=== PATIENT | male | born 1945 | race Caucasian/White ===

== ENCOUNTER → 2018-01-08 14:06 | Outpatient (CLI) | payer MEDICARE, SELFPAY ==
[2018-01-08 16:07] LABS: Anion Gap 11 (5-15); BUN 13 mg/dL (7-18); BUN/Creat Ratio 12.9 RATIO (10-20); Chloride 103 mmol/L (98-107); Cholesterol 226 mg/dL (200); Creatinine, Serum 1.01 mg/dL (0.70-1.30); EST Glomerular Filtration Rate 78 mL/min (>60); Est Glom Filt Rate - Afr Amer 94 mL/min (>60); Glucose 97 mg/dL (74-106); High Density Lipoprotein 51 mg/dL; PSA,Total - Annual Screen 5.45 ng/mL (0.00-4.00); Potassium 3.7 mmol/L (3.5-5.1); Sodium Level 137 mmol/L (136-145); Triglycerides 79 mg/dL; Very Low Density Lipoprotein 16 mg/dL (5-40)
== END ==
PROVIDERS: Family Provider Family Medicine; PCP Family Medicine; Referring Provider Family Medicine; Visit Provider Family Medicine
DX: E78.00 Pure hypercholesterolemia, unspecified (principal); Z12.5 Encounter for screening for malignant neoplasm of prostate
CPT/HCPCS: 36415; 80048; 80061; 84153; G0103

== ENCOUNTER → 2018-08-11 | Outpatient (CLI) | payer MEDICARE, SELFPAY ==
[2018-08-11 11:27] LABS: PSA,Total- Diagnostic 4.56 ng/mL (0.0-4.0)
== END | disposition home or self-care (01) ==
PROVIDERS: Family Provider Family Medicine; PCP Family Medicine; Referring Provider Family Medicine; Visit Provider Family Medicine
DX: R97.20 Elevated prostate specific antigen [PSA] (principal)
CPT/HCPCS: 36415; 84153

== ENCOUNTER → 2018-09-29 | Outpatient (CLI) | payer MEDICARE, SELFPAY ==
--- NOTE | 2018-09-29 13:36 | RAD_ITS ---
STUDY: X-RAY - RIGHT KNEE REASON FOR EXAM: Male, 73 years old. Pain TECHNIQUE: 4 view(s) of the knee. COMPARISON: None. FINDINGS: There is moderately to severely decreased joint space in the medial weightbearing compartment with mild subchondral sclerosis. Lateral compartment joint space is preserved. There is mild periarticular marginal osteophyte formation. The knee is intact and located. Mineralization is normal. Soft tissues unremarkable. There is a minor joint effusion. RAD/Knee 4 or More Views IMPRESSION: Moderate degenerative change in the medial weightbearing compartment. Electronically Signed: Debbie York, at 18:15 EDT Tel , Service support ,
--- NOTE | 2018-09-29 13:36 | RAD_ITS ---
STUDY: X-RAY - LEFT KNEE REASON FOR EXAM: Male, 73 years old. Left medial knee pain TECHNIQUE: 4 view(s) of the knee. COMPARISON: None. FINDINGS: There is mildly to moderately decreased medial compartment joint space with mild subchondral sclerosis and articular osteophyte formation. Lateral compartment joint space is preserved. The knee is intact and located. Mineralization is normal. Soft tissues unremarkable. There is no joint effusion. RAD/Knee 4 or More Views IMPRESSION: Mild to moderate medial compartment degenerative joint disease. Electronically Signed: Debbie York, at 17:43 EDT Tel , Service support ,
== END | disposition home or self-care (01) ==
LOC: MTRAD 13:34
PROVIDERS: Family Provider Family Medicine; PCP Family Medicine; Referring Provider Family Medicine; Visit Provider Family Medicine
DX: M25.562 Pain in left knee (principal); M25.561 Pain in right knee
CPT/HCPCS: 73564

== ENCOUNTER → 2018-10-08 | Outpatient (CLI) | payer MEDICARE, SELFPAY ==
--- NOTE | 2018-10-08 12:21 | RAD_ITS ---
STUDY: X-RAY - LUMBAR SPINE REASON FOR EXAM: Male, 73 years old. Lower back pain. TECHNIQUE: 2 view(s) of the lumbar spine were obtained. COMPARISON: None FINDINGS: Normal lumbar lordosis. There is no substantial scoliosis. There is a normal alignment of the vertebrae. There is multilevel endplate spondylosis of the lumbar vertebrae. There is multi-level degenerative disc disease with multi-level disc space narrowing. There is no evidence of acute fracture or loss of vertebral axial height. There is atherosclerotic calcification of the abdominal aorta without a demonstrated aneurysm. Cholecystectomy clips are seen in the right upper quadrant. RAD/Lumbar Spine 2 or 3 Views IMPRESSION: Degenerative changes of the lumbar spine. Electronically Signed: Bird Chavez DO at 19:30 EDT Tel [phone], Service support ,
== END | disposition home or self-care (01) ==
LOC: MTRAD 12:19
PROVIDERS: Family Provider Family Medicine; PCP Family Medicine
DX: M54.5 Low back pain (principal)
CPT/HCPCS: 72100

== ENCOUNTER → 2019-03-09 10:29 | Outpatient (CLI) | payer MEDICARE, SELFPAY ==
[2019-03-09 12:37] LABS: Absolute Neutrophil Count 6.4 X10^3/uL (2.0-7.7); Basophil# 0.03 X10^3/uL; Basophil% 0.3 % (0-1); Eosinophil# 0.08 X10^3/uL; Eosinophils% 0.9 % (0-5); Hematocrit 43.8 % (40-54); Hemoglobin 14.5 g/dL (13.0-16.5); Lymphocyte % 16.1 % (19-41); Mean Corp Hgb Conc 33.1 g/dL (32-36); Mean Corpuscular Hgb 30.5 pg (27.0-32.0); Mean Corpuscular Volume 92.2 fL (80-94); Mean Platelet Vol. 10.3 fl (6.2-12.0); Monocyte# 0.77 X10^3/uL; Monocyte% 8.9 % (0-10); NRBC Flagged by Analyzer 0 % (0-5); Neutrophil # 6.36 X10^3/uL (2.7-7.7); Neutrophil % 73.5 % (47-70); Platelet Count 280 K/mm3 (150-450); Red Blood Count 4.75 M/mm3 (4.6-6.2); White Blood Count 8.7 K/mm3 (4.4-11.0)
[2019-03-09 12:41] LABS: Anion Gap 8 (5-15); BUN 14 mg/dL (7-18); BUN/Creat Ratio 13.1 RATIO (10-20); Calcium,Total 8.9 mg/dL (8.5-10.1); Chloride 106 mmol/L (98-107); Cholesterol 231 mg/dL (200); Creatinine, Serum 1.07 mg/dL (0.70-1.30); EST Glomerular Filtration Rate 72 mL/min (>60); Est Glom Filt Rate - Afr Amer 87 mL/min (>60); Glucose 116 mg/dL (74-106); High Density Lipoprotein 61 mg/dL; Potassium 3.9 mmol/L (3.5-5.1); Sodium Level 138 mmol/L (136-145); Triglycerides 64 mg/dL; Very Low Density Lipoprotein 13 mg/dL (5-40)
== END ==
PROVIDERS: Family Provider Family Medicine; PCP Family Medicine; Referring Provider Family Medicine; Visit Provider Family Medicine
DX: M25.562 Pain in left knee (principal); E78.00 Pure hypercholesterolemia, unspecified; R97.20 Elevated prostate specific antigen [PSA]
CPT/HCPCS: 36415; 80048; 80061; 84153; 85025

== ENCOUNTER → 2019-08-21 14:06 | Outpatient (CLI) | payer MEDICARE, SELFPAY ==
[2019-08-21 14:11] LABS: Bacteria 0 SEEN /hpf (None Seen); Mucous, Urine 0 SEEN /hpf (<or=2+); Squamous Epithelial Cells - UA 0 SEEN /hpf (0-5)
[2019-08-21 15:57] LABS: Color, Urine Yellow (Yellow); Glucose, Dipstick Normal (Normal); Ketone-Dipstick Negative (Negative); Leukocyte Esterase-Dipstick Negative /ul (Negative); Nitrite-Dipstick Negative (Negative); Occult Blood-Urine Negative /ul (Negative); Protein-Dipstick Negative (Negative); Urine Bilirubin Dipstick Negative (Negative); Urine Clarity Clear (Clear); Urine Urobilinogen Normal (Normal)
[2019-08-21 16:37] LABS: ALB/GLOB Ratio 0.8 RATIO (0.9-2.4); AST(SGOT) 15 U/L (15-37); Alanine Aminotransfer ALT/SGPT 22 U/L (16-61); Albumin, Serum 3.5 g/dL (3.2-5.0); Alkaline Phosphatase 74 U/L (45-117); Anion Gap 9 (5-15); BUN 18 mg/dL (7-18); BUN/Creat Ratio 15.4 RATIO (10-20); Calcium,Total 9.1 mg/dL (8.5-10.1); Chloride 105 mmol/L (98-107); Cholesterol 243 mg/dL (200); Creatinine, Serum 1.17 mg/dL (0.70-1.30); EST Glomerular Filtration Rate 65 mL/min (>60); Est Glom Filt Rate - Afr Amer 79 mL/min (>60); Globulin 4.2 g/dL (2.2-4.2); Glucose 147 mg/dL (74-106); High Density Lipoprotein 53 mg/dL; PSA,Total- Diagnostic 5.15 ng/mL (0.0-4.0); Potassium 3.7 mmol/L (3.5-5.1); Protein, Total 7.7 g/dL (6.4-8.2); Sodium Level 140 mmol/L (136-145); T4 Free Direct 0.84 ng/dL (0.76-1.46); Thyroid Stim Hormone (TSH) 2.09 uIU/mL (0.358-3.74); Triglycerides 213 mg/dL; Very Low Density Lipoprotein 43 mg/dL (5-40)
[2019-08-21 17:53] LABS: Amorphous Sediment 1+; Red Blood Cells-Urine 0-5 SEEN /hpf (0-5); White Blood Cells 0-5 SEEN /hpf (0-5)
[2019-08-21 19:24] LABS: Hemoglobin A1c 7.4 % (4.2-6.3)
== END ==
PROVIDERS: PCP Family Medicine; Referring Provider Family Medicine; Visit Provider Family Medicine
DX: E04.1 Nontoxic single thyroid nodule (principal); E78.00 Pure hypercholesterolemia, unspecified; R73.09 Other abnormal glucose; R97.20 Elevated prostate specific antigen [PSA]
CPT/HCPCS: 36415; 80053; 80061; 81001; 83036; 84153; 84439; 84443

== ENCOUNTER → 2019-09-02 09:28 | Outpatient (CLI) | payer MEDICARE, SELFPAY ==
--- NOTE | 2019-09-02 09:34 | US_ITS ---
STUDY: THYROID ULTRASOUND REASON FOR EXAM: Male, 74 years old. NODULE TECHNIQUE: Ultrasound evaluation of the thyroid was performed with real-time and static ibrahim-scale imaging. COMPARISON: None. FINDINGS: RIGHT LOBE: The right lobe of the thyroid gland measures 3.5 x 1.4 x 1.4 cm. There is a homogeneous echotexture. There is a 7 x 6 x 4 mm complex cystic and solid nodule of the mid right thyroid. LEFT LOBE: The left lobe of the thyroid gland measures 3.7 x 1.5 x 1.3 cm. There is a homogeneous echotexture. There are no demonstrated solid, cystic or complex lesions. ISTHMUS: The isthmus measures 7 millimeter. US/Thyroid IMPRESSION: Normal size to small thyroid with generally homogeneous parenchyma. 7 x 6 x 4 mm regular ovoid complex nodule of the mid right thyroid. Electronically Signed: Antionette Farrell MD at 23:52 EDT , Service support ,
== END ==
PROVIDERS: PCP Family Medicine; Referring Provider Family Medicine; Visit Provider Family Medicine
DX: E04.1 Nontoxic single thyroid nodule (principal)
CPT/HCPCS: 76536

== ENCOUNTER → 2019-12-01 09:49 | Outpatient (CLI) | payer MEDICARE, SELFPAY ==
[2019-12-01 12:19] LABS: Absolute Lymphocyte Count 1.46 X10^3/uL (0.83-4.51); Basophil# 0.06 X10^3/uL; Basophil% 0.7 % (0-1); Eosinophil# 0.09 X10^3/uL; Hematocrit 39.3 % (40-54); Hemoglobin 12.4 g/dL (13.0-16.5); Lymphocyte # 1.46 X10^3/ul (4.0); Lymphocyte % 15.9 % (19-41); Mean Corp Hgb Conc 31.6 g/dL (32-36); Mean Corpuscular Hgb 30.1 pg (27.0-32.0); Mean Corpuscular Volume 95.4 fL (80-94); Mean Platelet Vol. 10.1 fl (6.2-12.0); Monocyte# 0.62 X10^3/uL; Monocyte% 6.7 % (0-10); NRBC Flagged by Analyzer 0 % (0-5); Neutrophil # 6.96 X10^3/uL (2.7-7.7); Neutrophil % 75.5 % (47-70); Platelet Count 534 K/mm3 (150-450); RBC Distribution Width CV 13.2 % (11.6-14.6); RBC Distribution Width SD 46.5 fl (35.1-43.9); Red Blood Count 4.12 M/mm3 (4.6-6.2); White Blood Count 9.2 K/mm3 (4.4-11.0)
[2019-12-01 12:51] LABS: ALB/GLOB Ratio 0.8 RATIO (0.9-2.4); AST(SGOT) 14 U/L (15-37); Alanine Aminotransfer ALT/SGPT 22 U/L (16-61); Albumin, Serum 3.4 g/dL (3.2-5.0); Alkaline Phosphatase 81 U/L (45-117); Anion Gap 7 (5-15); BUN 18 mg/dL (7-18); BUN/Creat Ratio 18.3 RATIO (10-20); Calcium,Total 9.1 mg/dL (8.5-10.1); Chloride 108 mmol/L (98-107); Cholesterol 216 mg/dL (200); Creatinine, Serum 0.98 mg/dL (0.70-1.30); EST Glomerular Filtration Rate 80 mL/min (>60); Est Glom Filt Rate - Afr Amer 96 mL/min (>60); Globulin 4.1 g/dL (2.2-4.2); Glucose 120 mg/dL (74-106); High Density Lipoprotein 48 mg/dL; Protein, Total 7.5 g/dL (6.4-8.2); Sodium Level 140 mmol/L (136-145); Triglycerides 120 mg/dL; Very Low Density Lipoprotein 24 mg/dL (5-40)
[2019-12-01 12:52] LABS: Hemoglobin A1c 6.5 % (3.8-5.6)
[2019-12-01 13:05] LABS: Microalbumin,Random Urine 9.7 mg/L (NO RANGE EST.); Microalbumin:Creatinine Ratio 5.8 mg/g CRE (<30 mg/g CRE)
== END ==
PROVIDERS: PCP Family Medicine; Referring Provider Family Medicine; Visit Provider Family Medicine
DX: E78.00 Pure hypercholesterolemia, unspecified (principal); E11.9 Type 2 diabetes mellitus without complications
CPT/HCPCS: 36415; 80053; 80061; 82043; 82570; 83036; 85025

== ENCOUNTER → 2021-01-31 13:57 | Outpatient (CLI) | payer MEDICARE, SELFPAY ==
--- NOTE | 2021-01-31 14:00 | RAD_ITS ---
STUDY: X-RAY CHEST REASON FOR EXAM: Male, 75 years old. COVID DETECTED TECHNIQUE: PA and lateral views of the chest. COMPARISON: None. FINDINGS: Mild increased markings are seen in the peripheral lateral aspects of the right upper lobe as well as both lower lobes. This is suggestive of a mild degree of Covid pneumonitis. There is no demonstrated pleural abnormality. Normal size heart. Normal mediastinum and marycarmen. Normal visualized pulmonary arteries. Normal visualized aortic arch and descending thoracic aorta. There are diffuse degenerative changes of the visualized thoracic spine. Healed left rib fractures. Surgical clips are seen in the epigastric region. RAD/Chest PA and Lateral IMPRESSION: Mild degree of the peripheral infiltrates in both lungs as described. Electronically Signed: Dylan Vidal MD at 8:39 EDT , Service support ,
[2021-01-31 15:14] LABS: Absolute Lymphocyte Count 1.28 X10^3/uL (0.83-4.51); Absolute Neutrophil Count 6.8 X10^3/uL (2.0-7.7); Basophil# 0.03 X10^3/uL; Basophil% 0.3 % (0-1); Eosinophil# 0.07 X10^3/uL; Eosinophils% 0.8 % (0-5); Lymphocyte # 1.28 X10^3/ul (0.83-4.51); Lymphocyte % 14.6 % (19-41); Mean Corp Hgb Conc 33.3 g/dL (32-36); Mean Corpuscular Hgb 30.4 pg (27.0-32.0); Mean Corpuscular Volume 91.1 fL (80-94); Monocyte# 0.53 X10^3/uL; NRBC Flagged by Analyzer 0 % (0-5); Neutrophil # 6.84 X10^3/uL (2.7-7.7); Platelet Count 258 K/mm3 (150-450); RBC Distribution Width CV 12.9 % (11.6-14.6); RBC Distribution Width SD 42.7 fl (35.1-43.9); Red Blood Count 4.61 M/mm3 (4.6-6.2); White Blood Count 8.8 K/mm3 (4.4-11.0)
[2021-01-31 15:35] LABS: Hemoglobin A1c 12.5 % (3.8-5.6)
[2021-01-31 16:17] LABS: Vitamin B12 616 pg/mL (211-911)
[2021-01-31 16:21] LABS: ALB/GLOB Ratio 0.5 RATIO (0.9-2.4); AST(SGOT) 21 U/L (15-37); Alanine Aminotransfer ALT/SGPT 37 U/L (16-61); Albumin, Serum 2.6 g/dL (3.2-5.0); Alkaline Phosphatase 73 U/L (45-117); Anion Gap 8 (5-15); BUN 11 mg/dL (7-18); Calcium,Total 9.7 mg/dL (8.5-10.1); Chloride 105 mmol/L (98-107); Cholesterol 285 mg/dL (200); Creatinine, Serum 0.92 mg/dL (0.70-1.30); EST Glomerular Filtration Rate 86 mL/min (>60); Est Glom Filt Rate - Afr Amer 104 mL/min (>60); Ferritin 899 ng/mL (26-388); Globulin 5.1 g/dL (2.2-4.2); Glucose 115 mg/dL (74-106); High Density Lipoprotein 51 mg/dL; Iron 62 ug/dL (65-175); Iron Binding Capacity,Total 275 ug/dL (250-450); Potassium 3.8 mmol/L (3.5-5.1); Protein, Total 7.7 g/dL (6.4-8.2); Sodium Level 140 mmol/L (136-145); Triglycerides 205 mg/dL; Very Low Density Lipoprotein 41 mg/dL (5-40)
[2021-02-02 14:37] LABS: PSA, Free 2.86 ng/mL; PSA, Free % 31.8 % (.)
== END ==
PROVIDERS: PCP Family Medicine; Referring Provider Family Medicine; Visit Provider Family Medicine
DX: U07.1 COVID-19 (principal); D64.9 Anemia, unspecified; E11.9 Type 2 diabetes mellitus without complications; R97.20 Elevated prostate specific antigen [PSA]; E78.00 Pure hypercholesterolemia, unspecified
CPT/HCPCS: 36415; 71046; 80053; 80061; 82607; 82728; 82746; 83036; 83540; 83550; 84153; 84154; 85025

== ENCOUNTER → 2021-02-09 12:51 | Outpatient (CLI) | payer MEDICARE, SELFPAY ==
[2021-02-09 16:14] LABS: Prealbumin 29.1 mg/dL (20.0-40.0)
== END ==
PROVIDERS: PCP Family Medicine; Referring Provider Family Medicine; Visit Provider Family Medicine
DX: E77.8 Other disorders of glycoprotein metabolism (principal)
CPT/HCPCS: 36415; 84134

== ENCOUNTER 2021-03-28 05:37 | Day surgery (SDC) | payer MEDICARE, SELFPAY ==
--- NOTE | 2021-03-28 06:07 | PCM.HP.BLA ---
History and Physical Date of Admission: 03/28/21 Intake Visit Reasons: CSCOPE, POSITIVE FECAL TEST Chief Complaint: positive fecal occult blood Logistics Director Required: No Is patient in pain?: No Allergies No Known Allergies Allergy (Unverified 03/07/21 13:17) Medications apixaban 5 mg tablet mg PO 03/07/21 [History Confirmed 03/07/21] semaglutide 1 mg/dose (2 mg/1.5 mL) subcutaneous pen injector 1 mg SUBCUT QWEEK 03/07/21 [History Confirmed 03/07/21] PFS Medical History Broken femur COVID-19 Diabetes DVT (deep venous thrombosis) Surgical History S/P laparoscopic cholecystectomy Status post bilateral knee replacements Family History Mother Diabetes Social History Smoking Status: Former smoker alcohol intake: never HPI HPI HPI: ERINN EDWARDS, is a 75 M who presents to the office today for surgical consultation b/o hem positive stool. The pt is referred by Dr Conner Cervantes and a written copy of my consult will be returned to him. Recent labs suggest iron deficiency. On 01/31/21 WBC 8.8 and Hgb 14 and Hct 42 and Plts 258 and BUN 12 and Creat. 0.92 and Fe 62 and TIBC 275 and Ferritin 899. He has not noticed any bright red blood per rectum or melena. He did have COVID-19 January 09, 2021 was hospitalized at [facility]. Sounds like he required steroids. Was not on a ventilator. He did have pulmonary embolus at that time. He is now on Eliquis therapy. He has had no history of peptic ulcer disease. No bright red blood per rectum or melena. Has had no history of colon polyps or cancer but he has never had an upper or lower endoscopy. He still has some fatigue related to his COVID-19. His appetite is slowly returning to normal. He is currently being managed for his blood sugars which during his hospitalization were out of control likely due to steroid use. ROS General General: No weight change, appetite, fatigue, colon cancer, breast cancer or weakness HEENT HEENT: No difficulty swallowing, eye injury, eye surgery, swollen glands or hoarseness Endo Endocrine: Yes diabetes mellitus; No thyroid disease, thyroid cancer, Hair loss, heat intolerance or cold intolerance Skin Skin: No rash or changing moles Breast Breast: No left breast lump, right breast lump, nipple discharge, breast pain, abnormal mammogram, abnormal US or breast enlargement Musc Musculoskeletal: Yes back problems and arthritis; No rheumatoid arthritis, gout or joint pain Cardio Cardiovascular: No murmur, pacemaker, heart disease, atrial fibrillation, high blood pressure, heart attack, heart stent, palpitations, shortness of breat with exertion or chest pain Psych Psychiatric: No depression, anxiety or hearing voices Resp Respiratory: No shortness of breath, No sleep apnea, No cough, No COPD, No asthma, No emphysema and No wheezing Gastro Gastrointestinal: No abdominal pain, No nausea or vomiting, No diarrhea, No constipation, Yes blood in stool, No acid reflux, No hemorrhoids, No ulcers, No gallbladder problem and No black,tarry stools Andrey Hematologic: Yes blood thinners, No blood disorders, No bleeding, No anemia and Yes blood clots Neuro Neurologic: No system reviewed and no additional complaints, except as documented, No as per HPI, No abnormal gait, No abnormal hearing, No abnormal movements, No abnormal speech, No behavioral changes, No burning sensations, No confusion, No convulsions, No disequilibrium, No dizziness, No localized weakness, No frequent falls, No headache(s), No lack of coordination, No loss of vision, No memory loss, No numbness, No other visual disturbances, No radicular pain, No restless legs, No sensory deficit, No syncope, No tingling, No tremor(s), No weakness and No other Exam Const General: cooperative, healthy appearing, comfortable and no acute distress Nutritional Appearance: average body habitus Orientation: alert and awake [facility] Head: normal to inspection Eyes General: appearance normal, both eyes and all related structures Resp Effort & Inspection: normal respiratory effort Auscultation: clear to auscultation bilaterally Cardio Rate: regular rate Rhythm: regular rhythm GI Palpation: no hepatosplenomegaly Auscultation: normal bowel sounds Skin General: no rashes or lesions noted Neuro General: patient alert Extrem General: no calf tenderness Psych Appearance: grossly normal Assessment and Plan Assessment and Plan (1) Heme positive stool: Status: Acute Plan - Dr. Lloyd Vitale MD: 72-year-old gentleman. Recovering from COVID-19. Has had history of pulmonary embolism and is on Eliquis for treatment. He has been taking is having iron deficiency and Hemoccult positive stool. I recommend for him a combined esophagogastroduodenoscopy with possible biopsy and colonoscopy with possible biopsy or polypectomy as indicated. He is aware of technique, benefit, risk of alternatives. We will have him hold his Eliquis just 1 day prior to the procedure. I also did take the opportunity discussed with him vaccination for Covid. It is my recommendation that he consider this as an option once more fully recovered. He has had an opportunity to ask and have questions answered we will schedule procedure at his discretion. I very much appreciate the kind opportunity of assisting with the surgical care. Copy: Dr Conner Vitale M.D., F.A.C.S. I have re-examined the patient. There are no clinical changes since date of exam.
[2021-03-28 06:14] VITALS: BP 141/80; PULSE 82; RESP 18; TEMP 35.9; O2SAT 97; BMI 28.6
[2021-03-28 06:26] LABS: Bedside Glucose 112 mg/dL (70-110)
[2021-03-28] MEDS: Lactated Ringers 1,000 ML 15 ML IV (06:45)
--- NOTE | 2021-03-28 07:00 | IMM_PTH ---
PATIENT: ERINN EDWARDS LOC: [facility] U#:[id number] AGE/SX: 75/M ROOM: RE03/28/[address]: Dr. Lloyd Vitale MD : 1945 BED: DIS: 03/28/2021 SPEC #: [id number] RECD: 03/28/21 14:49 STATUS: ALEYDA REQ #: [id number] ELISABET: 03/28/21 07:[address]: Lloyd Vitale DEPT: IMMUNOHISTOCHEMISTRY RECD BY: Gerri Suarez ENTERED: 03/28/21 14:50 SP TYPE: IMMUNO OTHR DR: Dr. Conner Cervantes MD Tissues: B - Stomach, NOS Procedures: H Pylori (initial) PHYSICIAN & INSTITUTION [facility] [phone] SPECIMEN INFORMATION: Tissue Source: B ? Antrum biopsy Clinical Info: Heme-positive stool Specimen Number: [id number] CPT code: 80560 METHODOLOGY: Deparaffinized sections of prefer/formalin-fixed tissue or PAP/DQ stained slides are incubated with monoclonal/polyclonal antibodies/oligonucleotide probes. Localization is made via biotin free immunoperoxidase method. Appropriate controls are performed and reacted as expected. Results on target cell population are indicated in the following table: RESULTS: ANTIBODY / CLONE RESULT Block B H Pylori (polyclonal) negative These tests were developed and their performance characteristics determined by [facility]. They may not have been cleared or approved by the U.S. Food and Drug Administration. The FDA has determined that such clearance or approval is not necessary. INTERPRETATION: B. Antrum biopsy: Negative for Helicobacter pylori organisms. AM:domonique 03/29/2021
--- NOTE | 2021-03-28 07:00 | EGD_PTH ---
PATIENT: ERINN EDWARDS LOC: [facility] U#:[id number] AGE/SX: 75/M ROOM: RE03/28/[address]: Dr. Lloyd Vitale MD : 1945 BED: DIS: 03/28/2021 SPEC #: [id number] RECD: 03/28/21 11:33 STATUS: ALEYDA WHEELER #: [id number] ELISABET: 03/28/21 07:[address]: Lloyd Vitale DEPT: SURGICAL PATHOLOGY RECD BY: Audra Meyer ENTERED: 03/28/21 12:57 SP TYPE: EGD BIOPSY OT DR: Dr. Conner Cervantes MD Tissues: A - Duodenum, NOS B - Gastric mucous membrane C - Esophagus, NOS Procedures: Special Stain Group II Special Stain Group I Surgery Specimen Level IV AFB Stain (control) GMS Stain (control) Alcian Blue/PAS (control) HEADER OPERATION: Colonoscopy, EGD ([facility]) PRE-OP DIAGNOSIS: Heme-positive stool TISSUE SUBMITTED: A ? Duodenum biopsy, B ? Antrum biopsy for H. pylori and path, C ? Distal esophagus biopsy MICROSCOPIC DIAGNOSIS A. 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 B. Gastric antrum, biopsy: Mild chronic gastritis. See comment. C. Distal esophagus, biopsy: Focal non-necrotizing granulomas. Negative for acid fast bacilli and fungal organisms. Changes of reflux. No evidence of goblet cell metaplasia. See comment. AM:domonique 03/29/2021 COMMENT B. The results of immunohistochemistry for Helicobacter pylori will be reported separately ([id number]). C. AFB and GMS stains with matched controls were used in the evaluation of this case. Alcian blue/PAS stain with matched control supports the above diagnosis. MICROSCOPIC DESCRIPTION Slides are reviewed. GROSS DESCRIPTION A - Received in fixative is one container labeled with the patient's name and designated duodenum biopsy. The specimen consists of multiple irregular fragments of light presley soft tissue that in aggregate measure 0.5 x 0.3 x 0.1 cm. The specimen is totally submitted in one cassette. B - Received in fixative is one container labeled with the patient's name and designated antrum biopsy. The specimen consists of one irregular fragment of light presley soft tissue that measures 0.3 x 0.2 x 0.1 cm. The specimen is totally submitted in one cassette. C - Received in fixative is one container labeled with the patient's name and designated distal esophagus. The specimen consists of multiple irregular fragments of light presley soft tissue that in aggregate measure 0.8 x 0.5 x 0.1 cm. The specimen is totally submitted in one cassette. / AM:domonique 03/28/21 TC:3 CPT: 54229 x3, 74718, 61407 x2
[2021-03-28 07:31] VITALS: BP 112/69; BP 141/80; PULSE 86; RESP 20; TEMP 30.5; O2SAT 95
--- NOTE | 2021-03-28 07:33 | OP.EGD_ITS ---
Patient Name: Price Queen Procedure Date: 03/28/2021 7:05 AM Date of : 1945 Age: 75 Procedure: Upper GI endoscopy Indications: Hemocult positive stool Providers: Lloyd Vitale MD Medicines: See the Anesthesia note for documentation of the administered medications Complications: No immediate complications. Procedure: Pre-Anesthesia Assessment: - Prior to the procedure, a History and Physical was performed, and patient medications and allergies were reviewed. The patient's tolerance of previous anesthesia was also reviewed. The risks and benefits of the procedure and the sedation options and risks were discussed with the patient. All questions were answered, and informed consent was obtained. Prior Anticoagulants: The patient has taken no previous anticoagulant or antiplatelet agents. ASA Grade Assessment: II - A patient with mild systemic disease. After reviewing the risks and benefits, the patient was deemed in satisfactory condition to undergo the procedure. After obtaining informed consent, the endoscope was passed under direct vision. Throughout the procedure, the patient's blood pressure, pulse, and oxygen saturations were monitored continuously. The Endoscope was introduced through the mouth, and advanced to the second part of duodenum. The upper GI endoscopy was accomplished without difficulty. The patient tolerated the procedure well. Scope In: 7:12:26 AM Scope Out: 7:19:03 AM Total Procedure Duration Time 0 hours 6 minutes 37 seconds Findings: LA Grade A (one or more mucosal breaks less than 5 mm, not extending between tops of 2 mucosal folds) esophagitis with no bleeding was found 39 cm from the incisors. Biopsies were taken with a cold forceps for histology. A small hiatal hernia was present. Diffuse mild inflammation characterized by erythema was found in the gastric antrum. Biopsies were taken with a cold forceps for histology. Diffuse mildly erythematous mucosa without active bleeding and with no stigmata of bleeding was found in the duodenal bulb. Biopsies were taken with a cold forceps for histology. Impression: - LA Grade A reflux esophagitis. Biopsied. - Small hiatal hernia. - Gastritis. Biopsied. - Erythematous duodenopathy. Biopsied. Recommendation: - Await pathology results. - Repeat upper endoscopy. - Discharge patient to home. - Resume previous diet. - Continue present medications. - Use Prilosec (omeprazole) 20 mg PO daily. These findings could correlate with heme positive stools. Will treat Colonoscopy today failed prep. Will re-do. Procedure Code(s): --- Professional --- 98364, Esophagogastroduodenoscopy, flexible, transoral; with biopsy, single or multiple Diagnosis Code(s): --- Professional --- K21.0, Gastro-esophageal reflux disease with esophagitis K44.9, Diaphragmatic hernia without obstruction or gangrene K29.70, Gastritis, unspecified, without bleeding K31.89, Other diseases of stomach and duodenum CPT copyright 2017 [employer] [place] [employer]. All rights reserved. The codes documented in this report are preliminary and upon remote inpatient coder review may be revised to meet current compliance requirements. Lloyd Vitale MD 03/28/2021 7:33:13 AM This report has been signed electronically. Number of Addenda: 0 Note Initiated On: 03/28/2021 7:05 AM
--- NOTE | 2021-03-28 07:34 | OP.CCLET_ITS ---
03/28/2021 Conner Cervantes [address] [place] [address] Re : Upper GI endoscopy procedure for Price Queen Dear Dr. Cervantes This procedure was performed on Sunday, March 28, 2021. My impressions and recommendations are as follows: Impressions : - LA Grade A reflux esophagitis. Biopsied. - Small hiatal hernia. - Gastritis. Biopsied. - Erythematous duodenopathy. Biopsied. Recommendations : - Await pathology results. - Repeat upper endoscopy. - Discharge patient to home. - Resume previous diet. - Continue present medications. - Use Prilosec (omeprazole) 20 mg PO daily. These findings could correlate with heme positive stools. Will treat Colonoscopy today failed prep. Will re-do. My findings are described in the full procedure note, which is enclosed. If I can be of further assistance, please feel free to contact me at Doctor phone number(s): Work: . Sincerely, Lloyd Vitale MD 03/28/2021 7:33:13 AM This report has been signed electronically.
[2021-03-28 07:35] VITALS: BP 115/66; BP 141/80; PULSE 88; RESP 20; O2SAT 95
[2021-03-28 07:40] VITALS: BP 124/95; BP 141/80; PULSE 87; O2SAT 95
--- NOTE | 2021-03-28 07:41 | OP.COLON_ITS ---
Patient Name: Price Queen Procedure Date: 03/28/2021 7:19 AM Date of : 1945 Age: 75 Procedure: Colonoscopy Indications: Hemocult positive stool Providers: Lloyd Vitale MD Medicines: See the Anesthesia note for documentation of the administered medications Patient Profile: Last Colonoscopy: none. The patient's first colonoscopy is today. Complications: No immediate complications. Procedure: Pre-Anesthesia Assessment: - Prior to the procedure, a History and Physical was performed, and patient medications and allergies were reviewed. The patient's tolerance of previous anesthesia was also reviewed. The risks and benefits of the procedure and the sedation options and risks were discussed with the patient. All questions were answered, and informed consent was obtained. Prior Anticoagulants: The patient has taken no previous anticoagulant or antiplatelet agents. ASA Grade Assessment: II - A patient with mild systemic disease. After reviewing the risks and benefits, the patient was deemed in satisfactory condition to undergo the procedure. After I obtained informed consent, the scope was passed under direct vision. Throughout the procedure, the patient's blood pressure, pulse, and oxygen saturations were monitored continuously. The Colonoscope was introduced through the anus with the intention of advancing to the cecum. The scope was advanced to the transverse colon before the procedure was aborted. Medications were given. The colonoscopy was performed with difficulty due to inadequate bowel prep. The patient tolerated the procedure well. The quality of the bowel preparation was inadequate. Scope In: 7:21:58 AM Scope Out: 7:26:46 AM Total Procedure Duration Time 0 hours 4 minutes 48 seconds Findings: The digital rectal exam findings include non-thrombosed external hemorrhoids, non-thrombosed internal hemorrhoids, internal hemorrhoids that prolapse with straining, but spontaneously regress to the resting position (Grade II) and enlarged prostate. A few diverticula were found in the sigmoid colon. A large amount of stool was found in the mid transverse colon, precluding visualization. Impression: - Preparation of the colon was inadequate. - Non-thrombosed external hemorrhoids, non-thrombosed internal hemorrhoids, internal hemorrhoids that prolapse with straining, but spontaneously regress to the resting position (Grade II) and enlarged prostate found on digital rectal exam. - Diverticulosis in the sigmoid colon. - Stool in the mid transverse colon. - No specimens collected. Recommendation: - Discharge patient to home. - Resume previous diet. - Repeat colonoscopy in 1 week because the bowel preparation was poor. - Continue present medications. Procedure Code(s): --- Professional --- 85433, 53, Colonoscopy, flexible; diagnostic, including collection of specimen(s) by brushing or washing, when performed (separate procedure) Diagnosis Code(s): --- Professional --- K64.1, Second degree hemorrhoids K64.4, Residual hemorrhoidal skin tags K57.30, Diverticulosis of large intestine without perforation or abscess without bleeding N40.0, Benign prostatic hyperplasia without lower urinary tract symptoms CPT copyright 2017 [employer] [employer]. All rights reserved. The codes documented in this report are preliminary and upon water resource specialist review may be revised to meet current compliance requirements. Lloyd Vitale MD 03/28/2021 7:41:07 AM This report has been signed electronically. Number of Addenda: 0 Note Initiated On: 03/28/2021 7:19 AM
--- NOTE | 2021-03-28 07:42 | OP.CCLET_ITS ---
03/28/2021 Conner Cervantes [address] [place] [address] Re : Colonoscopy procedure for Price Queen Dear Dr. Cervantes This procedure was performed on Sunday, March 28, 2021. My impressions and recommendations are as follows: Impressions : - Preparation of the colon was inadequate. - Non-thrombosed external hemorrhoids, non-thrombosed internal hemorrhoids, internal hemorrhoids that prolapse with straining, but spontaneously regress to the resting position (Grade II) and enlarged prostate found on digital rectal exam. - Diverticulosis in the sigmoid colon. - Stool in the mid transverse colon. - No specimens collected. Recommendations : - Discharge patient to home. - Resume previous diet. - Repeat colonoscopy in 1 week because the bowel preparation was poor. - Continue present medications. My findings are described in the full procedure note, which is enclosed. If I can be of further assistance, please feel free to contact me at Doctor phone number(s): Work: . Sincerely, Lloyd Vitale MD 03/28/2021 7:41:07 AM This report has been signed electronically.
[2021-03-28 07:45] VITALS: BP 106/74; BP 141/80; PULSE 85; RESP 18; TEMP 35.7; O2SAT 96
[2021-03-28 08:07] VITALS: BP 141/80
== END 2021-03-28 08:17 | disposition home or self-care (01) ==
LOC: EN 05:37 → AC 05:38
PROVIDERS: PCP Family Medicine; Referring Provider Family Medicine; Visit Provider Surgery
PROC: 0DJD8ZZ Inspection of Lower Intestinal Tract, Via Natural or Artificial Opening Endoscopic (ICD-10-PCS; CPT 45378; principal; 2021-03-28 06:55)
DX: K29.50 Unspecified chronic gastritis without bleeding (principal); K21.00 Gastro-esophageal reflux disease with esophagitis, without bleeding; K44.9 Diaphragmatic hernia without obstruction or gangrene; K57.30 Diverticulosis of large intestine without perforation or abscess without bleeding; K64.1 Second degree hemorrhoids; K64.4 Residual hemorrhoidal skin tags; N40.0 Benign prostatic hyperplasia without lower urinary tract symptoms; E11.9 Type 2 diabetes mellitus without complications; Z86.16 Personal history of COVID-19; Z86.711 Personal history of pulmonary embolism; Z79.01 Long term (current) use of anticoagulants; Z87.891 Personal history of nicotine dependence
CPT/HCPCS: 43239; 45378; 82962; 88305; 88312; 88313; 88342; J7120; J2405

== ENCOUNTER 2021-04-11 07:55 | Day surgery (SDC) | payer MEDICARE, SELFPAY ==
--- NOTE | 2021-04-11 | COLBX_PTH ---
PATIENT: ERINN EDWARDS LOC: EN U#:[id number] AGE/SX: 75/M ROOM: RE04/11/[address]: Dr. Lloyd Vitale MD : 1945 BED: DIS: 04/11/2021 SPEC #: [id number] RECD: 04/11/21 11:13 STATUS: ALEYDA WHEELER #: [id number] ELISABET: 04/11/21 00:[address]: Lloyd Vitale DEPT: SURGICAL PATHOLOGY RECD BY: Tato Spain ENTERED: 04/11/21 11:14 SP TYPE: COLON BX OT DR: Dr. Conner Cervantes MD Tissues: A - Sigmoid colon biopsy B - Sigmoid colon biopsy C - Rectum, NOS Procedures: Surgery Specimen Level IV HEADER OPERATION: Colonoscopy (MAC) PRE-OP DIAGNOSIS: Heme-positive stool TISSUE SUBMITTED: A ? Distal sigmoid polyp #1 biopsy, B - Distal sigmoid polyp #2, C ? Rectal polyps (x2) biopsy MICROSCOPIC DIAGNOSIS A. Distal sigmoid polyp #1, biopsy: Hyperplastic polyp. B. Distal sigmoid polyp #2, biopsy: Hyperplastic polyp. C. Rectal polyps, biopsy: Fragments of tubular adenoma and hyperplastic polyp. AM:domonique 04/12/2021 MICROSCOPIC DESCRIPTION Slides are reviewed. GROSS DESCRIPTION A - Received in fixative is one container labeled with the patient's name and designated distal sigmoid polyp #1. The specimen consists of one irregular fragment of light presley soft tissue that measures 0.3 x 0.3 x 0.1 cm. The specimen is totally submitted in one cassette. B - Received in fixative is one container labeled with the patient's name and designated distal sigmoid polyp #2. The specimen consists of one irregular fragment of light presley soft tissue that measures 0.6 x 0.5 x 0.1 cm. The specimen is totally submitted in one cassette. C - Received in fixative is one container labeled with the patient's name and designated rectal polyp. The specimen consists of multiple irregular fragments of light presley soft tissue that in aggregate measure 1 x 0.7 x 0.1 cm. The specimen is totally submitted in one cassette. / AM:domonique 04/11/21 TC:5 CPT: 47827 x3
[2021-04-11 08:15] VITALS: BP 141/68; PULSE 73; RESP 18; TEMP 36.4; O2SAT 98; BMI 28.6
--- NOTE | 2021-04-11 08:20 | PCM.HP.BLA ---
History and Physical Date of Admission: 04/11/21 Visit Reasons: CSCOPE, POSITIVE FECAL TEST Chief Complaint: positive fecal occult blood Culinary Worker Required: No Is patient in pain?: No Allergies No Known Allergies Allergy (Unverified 03/07/21 13:17) Medications apixaban 5 mg tablet mg PO 03/07/21 [History Confirmed 03/07/21] semaglutide 1 mg/dose (2 mg/1.5 mL) subcutaneous pen injector 1 mg SUBCUT QWEEK 03/07/21 [History Confirmed 03/07/21] PFSH Medical History Broken femur COVID-19 Diabetes DVT (deep venous thrombosis) Surgical History S/P laparoscopic cholecystectomy Status post bilateral knee replacements Family History Mother Diabetes Social History Smoking Status: Former smoker alcohol intake: never HPI HPI HPI: ERINN EDWARDS, is a 75 M who presents to the office today for surgical consultation b/o hem positive stool. The pt is referred by Dr Conner Cervantes and a written copy of my consult will be returned to him. Recent labs suggest iron deficiency. On 01/31/21 WBC 8.8 and Hgb 14 and Hct 42 and Plts 258 and BUN 12 and Creat. 0.92 and Fe 62 and TIBC 275 and Ferritin 899. He has not noticed any bright red blood per rectum or melena. He did have COVID-19 January 09, 2021 was hospitalized at [facility]. Sounds like he required steroids. Was not on a ventilator. He did have pulmonary embolus at that time. He is now on Eliquis therapy. He has had no history of peptic ulcer disease. No bright red blood per rectum or melena. Has had no history of colon polyps or cancer but he has never had an upper or lower endoscopy. He still has some fatigue related to his COVID-19. His appetite is slowly returning to normal. He is currently being managed for his blood sugars which during his hospitalization were out of control likely due to steroid use. ROS General General: No weight change, appetite, fatigue, colon cancer, breast cancer or weakness HEENT HEENT: No difficulty swallowing, eye injury, eye surgery, swollen glands or hoarseness Endo Endocrine: Yes diabetes mellitus; No thyroid disease, thyroid cancer, Hair loss, heat intolerance or cold intolerance Skin Skin: No rash or changing moles Breast Breast: No left breast lump, right breast lump, nipple discharge, breast pain, abnormal mammogram, abnormal US or breast enlargement Musc Musculoskeletal: Yes back problems and arthritis; No rheumatoid arthritis, gout or joint pain Cardio Cardiovascular: No murmur, pacemaker, heart disease, atrial fibrillation, high blood pressure, heart attack, heart stent, palpitations, shortness of breat with exertion or chest pain Psych Psychiatric: No depression, anxiety or hearing voices Resp Respiratory: No shortness of breath, No sleep apnea, No cough, No COPD, No asthma, No emphysema and No wheezing Gastro Gastrointestinal: No abdominal pain, No nausea or vomiting, No diarrhea, No constipation, Yes blood in stool, No acid reflux, No hemorrhoids, No ulcers, No gallbladder problem and No black,tarry stools Andrey Hematologic: Yes blood thinners, No blood disorders, No bleeding, No anemia and Yes blood clots Neuro Neurologic: No system reviewed and no additional complaints, except as documented, No as per HPI, No abnormal gait, No abnormal hearing, No abnormal movements, No abnormal speech, No behavioral changes, No burning sensations, No confusion, No convulsions, No disequilibrium, No dizziness, No localized weakness, No frequent falls, No headache(s), No lack of coordination, No loss of vision, No memory loss, No numbness, No other visual disturbances, No radicular pain, No restless legs, No sensory deficit, No syncope, No tingling, No tremor(s), No weakness and No other Exam Const General: cooperative, healthy appearing, comfortable and no acute distress Nutritional Appearance: average body habitus Orientation: alert and awake [facility] Head: normal to inspection Eyes General: appearance normal, both eyes and all related structures Resp Effort & Inspection: normal respiratory effort Auscultation: clear to auscultation bilaterally Cardio Rate: regular rate Rhythm: regular rhythm GI Palpation: no hepatosplenomegaly Auscultation: normal bowel sounds Skin General: no rashes or lesions noted Neuro General: patient alert Extrem General: no calf tenderness Psych Appearance: grossly normal Assessment and Plan Assessment and Plan (1) Heme positive stool: Status: Acute Plan - Dr. Lloyd Vitale MD: 72-year-old gentleman. Recovering from COVID-19. Has had history of pulmonary embolism and is on Eliquis for treatment. He has been taking is having iron deficiency and Hemoccult positive stool. I recommend for him a combined esophagogastroduodenoscopy with possible biopsy and colonoscopy with possible biopsy or polypectomy as indicated. He is aware of technique, benefit, risk of alternatives. We will have him hold his Eliquis just 1 day prior to the procedure. I also did take the opportunity discussed with him vaccination for Covid. It is my recommendation that he consider this as an option once more fully recovered. He has had an opportunity to ask and have questions answered we will schedule procedure at his discretion. I very much appreciate the kind opportunity of assisting with the surgical care. Copy: Dr Conner Vitale M.D., F.A.C.S. I have re-examined the patient. There are no clinical changes since date of exam On March 28, 2021 an attempt was made to do a combined upper and lower endoscopy as the patient was Hemoccult positive. The upper endoscopy was accomplished. The lower endoscopy could not be pursued because of the failed bowel prep. He will have his Eliquis held for 1 day. He had a pulmonary embolisms while he had COVID-19. We will proceed as noted. He presents today with a 2-day bowel prep. Lloyd Vitale M.D., F.A.C.S.
[2021-04-11 08:46] LABS: Bedside Glucose 135 mg/dL (70-110)
[2021-04-11] MEDS: Lactated Ringers 1,000 ML 15 ML IV (08:47)
[2021-04-11 09:40] VITALS: BP 141/68; BP 91/74; PULSE 71; RESP 16; TEMP 36.1; O2SAT 99
--- NOTE | 2021-04-11 09:43 | OP.COLON_ITS ---
Patient Name: Price Queen Procedure Date: 04/11/2021 8:56 AM Date of : 1945 Age: 75 Procedure: Colonoscopy Indications: Hemocult positive stool Providers: Lloyd Vitale MD Medicines: See the Anesthesia note for documentation of the administered medications Patient Profile: Last Colonoscopy: none. The patient's first colonoscopy is today. Complications: No immediate complications. Procedure: Pre-Anesthesia Assessment: - Prior to the procedure, a History and Physical was performed, and patient medications and allergies were reviewed. The patient's tolerance of previous anesthesia was also reviewed. The risks and benefits of the procedure and the sedation options and risks were discussed with the patient. All questions were answered, and informed consent was obtained. Prior Anticoagulants: The patient has taken Eliquis (apixaban), last dose was 1 day prior to procedure. ASA Grade Assessment: II - A patient with mild systemic disease. After reviewing the risks and benefits, the patient was deemed in satisfactory condition to undergo the procedure. After I obtained informed consent, the scope was passed under direct vision. Throughout the procedure, the patient's blood pressure, pulse, and oxygen saturations were monitored continuously. The colonoscope was introduced through the anus and advanced to the cecum, identified by appendiceal orifice and ileocecal valve. The colonoscopy was performed without difficulty. The patient tolerated the procedure well. The quality of the bowel preparation was good. The ileocecal valve and the appendiceal orifice were photographed. Scope In: 9:13:21 AM Scope Withdrawal Time 0 hours 14 minutes 47 seconds Scope Out: 9:35:17 AM Total Procedure Duration Time 0 hours 21 minutes 56 seconds Findings: The digital rectal exam findings include non-thrombosed external hemorrhoids, non-thrombosed internal hemorrhoids, internal hemorrhoids that prolapse with straining, but spontaneously regress to the resting position (Grade II) and enlarged prostate. Multiple diverticula were found in the sigmoid colon and descending colon. Three sessile polyps were found in the distal sigmoid colon. The polyps were 3 to 4 mm in size. These polyps were removed with a cold biopsy forceps. Resection and retrieval were complete. Two sessile polyps were found in the rectum. The polyps were 3 to 4 mm in size. These polyps were removed with a cold biopsy forceps. Resection and retrieval were complete. Impression: - Non-thrombosed external hemorrhoids, non-thrombosed internal hemorrhoids, internal hemorrhoids that prolapse with straining, but spontaneously regress to the resting position (Grade II) and enlarged prostate found on digital rectal exam. - Diverticulosis in the sigmoid colon and in the descending colon. - Three 3 to 4 mm polyps in the distal sigmoid colon, removed with a cold biopsy forceps. Resected and retrieved. - Two 3 to 4 mm polyps in the rectum, removed with a cold biopsy forceps. Resected and retrieved. Recommendation: - Repeat colonoscopy in 5 years for surveillance. - Telephone my office for pathology results in 1 week. - Continue present medications except hold Eliquis until tomorrow to assure no rectal bleeding Procedure Code(s): --- Professional --- 58034, Colonoscopy, flexible; with biopsy, single or multiple Diagnosis Code(s): --- Professional --- K64.1, Second degree hemorrhoids K64.4, Residual hemorrhoidal skin tags D12.5, Benign neoplasm of sigmoid colon K62.1, Rectal polyp N40.0, Benign prostatic hyperplasia without lower urinary tract symptoms K57.30, Diverticulosis of large intestine without perforation or abscess without bleeding CPT copyright 2017 [employer] [place] [employer]. All rights reserved. The codes documented in this report are preliminary and upon fire management specialist review may be revised to meet current compliance requirements. Lloyd Vitale MD 04/11/2021 9:42:43 AM This report has been signed electronically. Number of Addenda: 0 Note Initiated On: 04/11/2021 8:56 AM
--- NOTE | 2021-04-11 09:44 | OP.CCLET_ITS ---
04/11/2021 Conner Cervantes [address] [place] [address] Re : Colonoscopy procedure for Price Queen Dear Dr. Cervantes This procedure was performed on Sunday, April 11, 2021. My impressions and recommendations are as follows: Impressions : - Non-thrombosed external hemorrhoids, non-thrombosed internal hemorrhoids, internal hemorrhoids that prolapse with straining, but spontaneously regress to the resting position (Grade II) and enlarged prostate found on digital rectal exam. - Diverticulosis in the sigmoid colon and in the descending colon. - Three 3 to 4 mm polyps in the distal sigmoid colon, removed with a cold biopsy forceps. Resected and retrieved. - Two 3 to 4 mm polyps in the rectum, removed with a cold biopsy forceps. Resected and retrieved. Recommendations : - Repeat colonoscopy in 5 years for surveillance. - Telephone my office for pathology results in 1 week. - Continue present medications except hold Eliquis until tomorrow to assure no rectal bleeding My findings are described in the full procedure note, which is enclosed. If I can be of further assistance, please feel free to contact me at Doctor phone number(s): Work: . Sincerely, Lloyd Vitale MD 04/11/2021 9:42:43 AM This report has been signed electronically.
[2021-04-11 09:45] VITALS: BP 121/76; BP 141/68; PULSE 71; RESP 16; O2SAT 98
[2021-04-11 09:50] VITALS: BP 121/72; BP 141/68; PULSE 69; RESP 16; O2SAT 98
[2021-04-11 09:55] VITALS: BP 130/71; BP 141/68; PULSE 67; RESP 16; TEMP 36.1; O2SAT 98
[2021-04-11 10:02] VITALS: BP 141/68
== END 2021-04-11 23:59 | disposition home or self-care (01) ==
LOC: EN 07:58 → AC 07:59
PROVIDERS: PCP Family Medicine; Referring Provider Family Medicine; Visit Provider Surgery
PROC: 0DJD8ZZ Inspection of Lower Intestinal Tract, Via Natural or Artificial Opening Endoscopic (ICD-10-PCS; CPT 45378; principal; 2021-04-11 09:10)
DX: D12.8 Benign neoplasm of rectum (principal); E11.9 Type 2 diabetes mellitus without complications; K64.8 Other hemorrhoids; K57.30 Diverticulosis of large intestine without perforation or abscess without bleeding; K63.5 Polyp of colon; K64.4 Residual hemorrhoidal skin tags; Z90.49 Acquired absence of other specified parts of digestive tract; Z87.891 Personal history of nicotine dependence; K62.1 Rectal polyp; N40.0 Benign prostatic hyperplasia without lower urinary tract symptoms; Z86.718 Personal history of other venous thrombosis and embolism; Z86.16 Personal history of COVID-19; M19.90 Unspecified osteoarthritis, unspecified site; Z86.711 Personal history of pulmonary embolism
CPT/HCPCS: 45380; 82962; 88305; J7120; J2405

== ENCOUNTER 2021-05-16 09:30 | Outpatient (CLI) | payer MEDICARE, SELFPAY ==
[2021-05-16 12:13] LABS: Absolute Lymphocyte Count 1.79 X10^3/uL (0.83-4.51); Absolute Neutrophil Count 5.9 X10^3/uL (2.0-7.7); Basophil# 0.04 X10^3/uL; Basophil% 0.5 % (0-1); Eosinophil# 0.09 X10^3/uL; Eosinophils% 1.1 % (0-5); Hematocrit 45.2 % (40-54); Hemoglobin 15.5 g/dL (13.0-16.5); Lymphocyte # 1.79 X10^3/ul (0.83-4.51); Lymphocyte % 21.3 % (19-41); Mean Corp Hgb Conc 34.3 g/dL (32-36); Mean Corpuscular Volume 90.4 fL (80-94); Mean Platelet Vol. 11.5 fl (6.2-12.0); Monocyte# 0.56 X10^3/uL; Monocyte% 6.7 % (0-10); NRBC Flagged by Analyzer 0 % (0-5); Neutrophil % 70.3 % (47-70); POSITIVE COUNT YES; Platelet Count 241 K/mm3 (150-450); RBC Distribution Width CV 12.3 % (11.6-14.6); RBC Distribution Width SD 40.5 fl (35.1-43.9); White Blood Count 8.4 K/mm3 (4.4-11.0)
[2021-05-16 12:38] LABS: Differential Indicated SCAN CRITERIA MET
[2021-05-16 12:59] LABS: ALB/GLOB Ratio 0.8 RATIO (0.9-2.4); AST(SGOT) 16 U/L (15-37); Alanine Aminotransfer ALT/SGPT 25 U/L (16-61); Albumin, Serum 3.5 g/dL (3.2-5.0); Alkaline Phosphatase 56 U/L (45-117); Anion Gap 8 (5-15); BUN 15 mg/dL (7-18); BUN/Creat Ratio 14.4 RATIO (10-20); Calcium,Total 9.5 mg/dL (8.5-10.1); Chloride 105 mmol/L (98-107); Cholesterol 219 mg/dL (200); Creatinine, Serum 1.04 mg/dL (0.70-1.30); EST Glomerular Filtration Rate 74 mL/min (>60); Est Glom Filt Rate - Afr Amer 90 mL/min (>60); Ferritin 189 ng/mL (26-388); Globulin 4.3 g/dL (2.2-4.2); Glucose 106 mg/dL (74-106); High Density Lipoprotein 62 mg/dL; Iron 90 ug/dL (65-175); Iron Binding Capacity,Total 404 ug/dL (250-450); PSA,Total- Diagnostic 4.97 ng/mL (0.0-4.0); Protein, Total 7.8 g/dL (6.4-8.2); Sodium Level 136 mmol/L (136-145); Triglycerides 77 mg/dL; Very Low Density Lipoprotein 15 mg/dL (5-40)
[2021-05-16 13:36] LABS: Microalbumin,Random Urine 5.4 mg/L (NO RANGE EST.); Microalbumin:Creatinine Ratio 6.8 mg/g CRE (<30 mg/g CRE)
[2021-05-16 13:38] LABS: Hemoglobin A1c 6.3 % (3.8-5.6)
== END 2021-05-16 23:59 | disposition home or self-care (01) ==
PROVIDERS: PCP Family Medicine; Referring Provider Family Medicine; Visit Provider Family Medicine
DX: E11.9 Type 2 diabetes mellitus without complications (principal); E61.1 Iron deficiency; R97.20 Elevated prostate specific antigen [PSA]
CPT/HCPCS: 36415; 80053; 80061; 82043; 82570; 82728; 83036; 83540; 83550; 84153; 85025

== ENCOUNTER → 2022-05-22 | Outpatient (CLI) | payer MEDICARE, SELFPAY ==
[2022-05-22 15:40] LABS: Absolute Lymphocyte Count 1.93 X10^3/uL (0.83-4.51); Absolute Neutrophil Count 5.6 X10^3/uL (2.0-7.7); Basophil# 0.04 X10^3/uL; Basophil% 0.5 % (0-1); Eosinophil# 0.07 X10^3/uL; Eosinophils% 0.9 % (0-5); Hematocrit 43.4 % (40-54); Hemoglobin 14.5 g/dL (13.0-16.5); Lymphocyte # 1.93 X10^3/ul (0.83-4.51); Lymphocyte % 23.6 % (19-41); Mean Corp Hgb Conc 33.4 g/dL (32-36); Mean Corpuscular Volume 89.9 fL (80-94); Mean Platelet Vol. 11.3 fl (6.2-12.0); Monocyte# 0.53 X10^3/uL; Monocyte% 6.5 % (0-10); NRBC Flagged by Analyzer 0 % (0-5); Neutrophil # 5.57 X10^3/uL (2.7-7.7); Neutrophil % 68.1 % (47-70); Platelet Count 271 K/mm3 (150-450); RBC Distribution Width CV 12.3 % (11.6-14.6); RBC Distribution Width SD 40.2 fl (35.1-43.9); Red Blood Count 4.83 M/mm3 (4.6-6.2); White Blood Count 8.2 K/mm3 (4.4-11.0)
[2022-05-22 16:08] LABS: Hemoglobin A1c 11.7 % (3.8-5.6)
[2022-05-22 16:18] LABS: ALB/GLOB Ratio 0.9 RATIO (0.9-2.4); AST(SGOT) 17 U/L (15-37); Alanine Aminotransfer ALT/SGPT 33 U/L (16-61); Albumin, Serum 3.5 g/dL (3.2-5.0); Alkaline Phosphatase 77 U/L (45-117); Anion Gap 8 (5-15); BUN 15 mg/dL (7-18); BUN/Creat Ratio 14.4 RATIO (10-20); Calcium,Total 8.8 mg/dL (8.5-10.1); Chloride 103 mmol/L (98-107); Cholesterol 234 mg/dL (200); Creatinine, Serum 1.04 mg/dL (0.70-1.30); EST Glomerular Filtration Rate 74 mL/min (>60); Est Glom Filt Rate - Afr Amer 90 mL/min (>60); Ferritin 280 ng/mL (26-388); Glucose 312 mg/dL (74-106); High Density Lipoprotein 45 mg/dL; Iron 79 ug/dL (65-175); Iron Binding Capacity,Total 306 ug/dL (250-450); Potassium 3.8 mmol/L (3.5-5.1); Protein, Total 7.5 g/dL (6.4-8.2); Sodium Level 137 mmol/L (136-145); Triglycerides 118 mg/dL; Very Low Density Lipoprotein 24 mg/dL (5-40)
== END | disposition home or self-care (01) ==
LOC: MTLAB 12:53
PROVIDERS: PCP Family Medicine; Referring Provider Family Medicine; Visit Provider Family Medicine
DX: E61.1 Iron deficiency (principal); E11.9 Type 2 diabetes mellitus without complications
CPT/HCPCS: 36415; 80053; 80061; 82728; 83036; 83540; 83550; 85025

== ENCOUNTER → 2022-05-25 | Outpatient (CLI) | payer MEDICARE, SELFPAY ==
[2022-05-25 15:44] LABS: PSA,Total- Diagnostic 4.31 ng/mL (0.0-4.0)
== END | disposition home or self-care (01) ==
LOC: MTLAB 11:29
PROVIDERS: PCP Family Medicine; Referring Provider Family Medicine; Visit Provider Family Medicine
DX: R97.20 Elevated prostate specific antigen [PSA] (principal)
CPT/HCPCS: 36415; 84153

== ENCOUNTER → 2022-10-01 | Outpatient (CLI) | payer MEDICARE, SELFPAY ==
[2022-10-01 15:20] LABS: Absolute Lymphocyte Count 1.84 X10^3/uL (0.83-4.51); Absolute Neutrophil Count 7.9 X10^3/uL (2.0-7.7); Basophil# 0.05 X10^3/uL; Basophil% 0.5 % (0-1); Eosinophil# 0.11 X10^3/uL; Hematocrit 43.9 % (40-54); Hemoglobin 14.5 g/dL (13.0-16.5); Lymphocyte # 1.84 X10^3/ul (0.83-4.51); Lymphocyte % 17.5 % (19-41); Mean Corpuscular Hgb 29.9 pg (27.0-32.0); Mean Corpuscular Volume 90.5 fL (80-94); Mean Platelet Vol. 10.5 fl (6.2-12.0); Monocyte# 0.54 X10^3/uL; Monocyte% 5.1 % (0-10); NRBC Flagged by Analyzer 0 % (0-5); Neutrophil # 7.92 X10^3/uL (2.7-7.7); Neutrophil % 75.6 % (47-70); Platelet Count 315 K/mm3 (150-450); RBC Distribution Width CV 13.1 % (11.6-14.6); RBC Distribution Width SD 42.8 fl (35.1-43.9); Red Blood Count 4.85 M/mm3 (4.6-6.2); White Blood Count 10.5 K/mm3 (4.4-11.0)
[2022-10-01 15:43] LABS: Hemoglobin A1c 7.9 % (3.8-5.6)
[2022-10-01 15:45] LABS: Microalbumin,Random Urine 15.3 mg/L (NO RANGE EST.); Microalbumin:Creatinine Ratio 6.8 mg/g CRE (<30 mg/g CRE)
[2022-10-01 15:55] LABS: ALB/GLOB Ratio 0.9 RATIO (0.9-2.4); AST(SGOT) 19 U/L (15-37); Alanine Aminotransfer ALT/SGPT 25 U/L (16-61); Albumin, Serum 3.5 g/dL (3.2-5.0); Alkaline Phosphatase 63 U/L (45-117); Anion Gap 8 (5-15); BUN 10 mg/dL (7-18); BUN/Creat Ratio 9.6 RATIO (10-20); Calcium,Total 8.8 mg/dL (8.5-10.1); Chloride 108 mmol/L (98-107); Cholesterol 215 mg/dL (200); Creatinine, Serum 1.04 mg/dL (0.70-1.30); EST Glomerular Filtration Rate 74 mL/min (>60); Est Glom Filt Rate - Afr Amer 89 mL/min (>60); Glucose 92 mg/dL (74-106); High Density Lipoprotein 51 mg/dL; Potassium 3.6 mmol/L (3.5-5.1); Protein, Total 7.5 g/dL (6.4-8.2); Sodium Level 141 mmol/L (136-145); Triglycerides 79 mg/dL; Very Low Density Lipoprotein 16 mg/dL (5-40)
== END | disposition home or self-care (01) ==
LOC: MTLAB 12:40
PROVIDERS: PCP Family Medicine; Referring Provider Family Medicine; Visit Provider Family Medicine
DX: E11.9 Type 2 diabetes mellitus without complications (principal)
CPT/HCPCS: 36415; 80053; 80061; 82043; 82570; 83036; 85025

== ENCOUNTER → 2023-01-01 | Outpatient (CLI) | payer MEDICARE, SELFPAY ==
[2023-01-02 12:08] LABS: PSA, Free 1.31 ng/mL; PSA, Free % 31.9 % (.)
== END | disposition home or self-care (01) ==
PROVIDERS: PCP Family Medicine; Referring Provider Family Medicine; Visit Provider Family Medicine
DX: R97.20 Elevated prostate specific antigen [PSA] (principal)
CPT/HCPCS: 36415; 84153; 84154

== ENCOUNTER → 2023-01-04 | Outpatient (CLI) | payer MEDICARE, SELFPAY ==
[2023-01-04 10:04] LABS: Absolute Lymphocyte Count 1.91 X10^3/uL (0.83-4.51); Absolute Neutrophil Count 6.7 X10^3/uL (2.0-7.7); Basophil# 0.04 X10^3/uL; Basophil% 0.4 % (0-1); Eosinophil# 0.11 X10^3/uL; Eosinophils% 1.2 % (0-5); Hematocrit 43.5 % (40-54); Hemoglobin 14.6 g/dL (13.0-16.5); Lymphocyte # 1.91 X10^3/ul (0.83-4.51); Lymphocyte % 20.1 % (19-41); Mean Corp Hgb Conc 33.6 g/dL (32-36); Mean Corpuscular Volume 92.4 fL (80-94); Mean Platelet Vol. 10.8 fl (6.2-12.0); Monocyte# 0.68 X10^3/uL; Monocyte% 7.2 % (0-10); NRBC Flagged by Analyzer 0 % (0-5); Neutrophil # 6.73 X10^3/uL (2.7-7.7); Neutrophil % 70.8 % (47-70); Platelet Count 259 K/mm3 (150-450); RBC Distribution Width CV 12.6 % (11.6-14.6); RBC Distribution Width SD 42.8 fl (35.1-43.9); Red Blood Count 4.71 M/mm3 (4.6-6.2); White Blood Count 9.5 K/mm3 (4.4-11.0)
[2023-01-04 10:19] LABS: ALB/GLOB Ratio 0.8 RATIO (0.9-2.4); AST(SGOT) 12 U/L (15-37); Alanine Aminotransfer ALT/SGPT 37 U/L (16-61); Albumin, Serum 3.4 g/dL (3.2-5.0); Alkaline Phosphatase 73 U/L (45-117); Anion Gap 6 (5-15); BUN 18 mg/dL (7-18); BUN/Creat Ratio 18.4 RATIO (10-20); Chloride 108 mmol/L (98-107); Cholesterol 133 mg/dL (200); Creatinine, Serum 0.98 mg/dL (0.70-1.30); EST Glomerular Filtration Rate 79 mL/min (>60); Est Glom Filt Rate - Afr Amer 96 mL/min (>60); Globulin 4.3 g/dL (2.2-4.2); Glucose 145 mg/dL (74-106); Hemoglobin A1c 6.8 % (3.8-5.6); High Density Lipoprotein 45 mg/dL; Potassium 3.8 mmol/L (3.5-5.1); Protein, Total 7.7 g/dL (6.4-8.2); Sodium Level 137 mmol/L (136-145); Triglycerides 96 mg/dL; Very Low Density Lipoprotein 19 mg/dL (5-40)
[2023-01-04 10:38] LABS: Microalbumin,Random Urine 28.1 mg/L (NO RANGE EST.); Microalbumin:Creatinine Ratio 11.5 mg/g CRE (<30 mg/g CRE)
== END | disposition home or self-care (01) ==
LOC: MFPLAB 08:19
PROVIDERS: PCP Family Medicine; Visit Provider Family Medicine
DX: E11.9 Type 2 diabetes mellitus without complications (principal)
CPT/HCPCS: 36415; 80053; 80061; 82043; 82570; 83036; 85025

== ENCOUNTER → 2023-05-06 | Outpatient (CLI) | payer MEDICARE, SELFPAY ==
--- OUTSIDE RECORDS SUMMARY | 2023-05-06 09:42 | XMS RPT_ITS | CCD ---
Author Name Unknown Address [address] [place] [address] Organization [facility] Care Team Providers Care Newspaper Editor Managing Name Role Phone WESTON PINA Referring Unavailable KOBI SILVA Admitting Unavailable KOBI SILVA Primary Care Unavailable KOBI SILVA Attending Unavailable WESTON PINA Consulting Unavailable PROVIDER, UNKNOWN Consulting Unavailable WESTON PINA Referring Unavailable ANDREWKIKE CHUA Admitting Unavailable ANDREWKIKE Primary Care Unavailable ANDREWKIKE CHUA Attending Unavailable WESTON PINA Consulting Unavailable PROVIDER, UNKNOWN Consulting Unavailable WESTON PINA Referring Unavailable PHUC LIGHT Admitting Unavailable PHUC LIGHT Primary Care Unavailable PHUC LIGHT Attending Unavailable WESTON PINA Consulting Unavailable PROVIDER, UNKNOWN Consulting Unavailable Problems Problem Classification Problem Date Documented Date Episodic/Chronic Abdominal pain (3 sources) Unspecified abdominal pain; Translations: [Right lower quadrant pain] Onset: 11-28-2022 Episodic Appendicitis and other appendiceal conditions (1 source) Acute appendicitis with perforation and localized peritonitis, without abscess; Translations: [Acute appendicitis with perforation, localized peritonitis, and gangrene, without abscess] Onset: 11-28-2022 Episodic Complications of surgical procedures or medical care (4 sources) Vomiting following gastrointestinal surgery; Translations: [Other postprocedural complications and disorders of digestive system] Onset: 12-03-2022 Episodic Diabetes mellitus without complication (1 source) Type 2 diabetes mellitus without complications; Translations: [Type 2 diabetes mellitus without complications] Onset: 12-07-2022 Chronic Disorders of lipid metabolism (1 source) Pure hypercholesterolemia, unspecified; Translations: [Pure hypercholesterolemia, unspecified] Onset: 11-28-2022 Chronic Intestinal obstruction without hernia (1 source) Ileus, unspecified; Translations: [Ileus, unspecified] Onset: 11-28-2022 Episodic Nonspecific chest pain (3 sources) Chest pain, unspecified; Translations: [Chest pain, unspecified] Onset: 12-07-2022 Episodic Other aftercare (1 source) FPC (current) use of oral hypoglycemic drugs; Translations: [intermission coordinator (current) use of oral hypoglycemic drugs] Onset: 12-03-2022 Episodic Other lower respiratory disease (1 source) Solitary pulmonary nodule; Translations: [Solitary pulmonary nodule] Onset: 12-07-2022 Episodic Other nutritional; endocrine; and metabolic disorders (1 source) Obesity, unspecified; Translations: [Obesity, unspecified] Onset: 12-03-2022 Chronic Other nutritional; endocrine; and metabolic disorders (1 source) Body mass index (BMI) 32.0-32.9, adult; Translations: [Body mass index [BMI] 32.0-32.9, adult] Onset: 12-03-2022 Chronic Other nutritional; endocrine; and metabolic disorders (1 source) Adult failure to thrive; Translations: [Adult failure to thrive] Onset: 12-03-2022 Episodic Residual codes; unclassified (1 source) Acquired absence of other specified parts of digestive tract; Translations: [Acquired absence of other specified parts of digestive tract] Onset: 12-07-2022 Episodic Screening and history of mental health and substance abuse codes (1 source) Personal history of nicotine dependence; Translations: [Personal history of nicotine dependence] Onset: 12-03-2022 Episodic Unclassified (1 source) Long-term (current) use of injectable non-insulin antidiabetic drugs; Translations: [Long-term (current) use of injectable non-insulin antidiabetic drugs] Onset: 12-03-2022 Results Test Name Value Interpretation Reference Range Facil ity Encounters Encounter Date Encounter Type Care Provider Facility Start: 12-07-2022 End: 12-07-2022 Emergency department patient visit [facility] Start: 12-03-2022 End: 12-04-[address] [facility] Start: 11-28-2022 End: 12-01-2022 Evaluation and management of inpatient [facility] Procedures Date Procedure Procedure Detail Performing Clinician Start: 12-03-2022 Urinalysis WESTON ROTH Payers Date Payer Category Payer Unknown [id number] 1945 Unknown [id number] 1945 Unknown [id number] Medicare [id number] Medicare [id number] PART B [place] Discharge summary note 02-25-2023 Note Date & Type Note Facility 02-25-2023 Note [facility] DISCHARGE SUMMARY NAME ACCOUNT SEX AGE ADMIT DISCHARGE PT MED. RECORD# NUMBER DATE DATE TYPE RON QUEEN [id number] M 77 11/28/22 12/01/22 1 [id number] ROOM: [facility] DATE OF : 1945 ATTENDING PHYSICIAN: Phuc Light FINAL DIAGNOSES: 1. Acute appendicitis with perforation, dense adhesions and peritonitis. 2. Diabetes mellitus. PROCEDURE: Laparoscopic appendectomy and drain placement on November 28, 2022. HISTORY OF PRESENT ILLNESS: See dictated history and physical. See operative note. Ron Queen is a 77-year-old gentleman who came in with a history of multiple days of abdominal pain. He had right lower quadrant tenderness with peritoneal signs, leukocytosis with a left shift, and a CT worrisome for appendicitis. HOSPITAL COURSE: He was taken to the operating room and underwent appendectomy and drain placement (see notes). Postoperatively he did well, and by December 01, 2022, he was tolerating oral intake well. The wound areas appeared to be healing adequately, and he had good bowel function. He was considered stable for discharge. MEDICATIONS ON DISCHARGE: He was sent home on oral antibiotics, which he will continue as directed. He will take ibuprofen 400 mg p.o. every 4 hours p.r.n. mild pain and may add Extra-Strength Tylenol as needed. He will take Percocet 5/325 mg one to two p.o. every 4 hours p.r.n. severe pain. He is to stay on his Augmentin 500 mg p.o. every 8 hours with food for 10 days. DISCHARGE INSTRUCTIONS/PLAN: He is to follow up with my office on December 27, 2022, at 0900 hours. He will call or return for fever, increased pain, nausea, vomiting, or any other problems. Prognosis is good. For final pathology report, see chart. Dictated By: Phuc Light MD 02/20/23 15:54 JOB #: [id number] Transcribed By: [email or web address] 02/20/23 20:31 Electronically signed by: E-Sign Dr. Phuc Light MD 02/25/23 10:30 Page 1 of 1 RON QUEEN A Discharge Summary [facility] Clinical Note 12-17-2022 Note Date & Type Note Facility 12-17-2022 Note [facility] PROGRESS NOTE NAME ACCOUNT SEX AGE ADMIT DISCHARGE PT MED. RECORD# NUMBER DATE DATE TYPE RON QUEEN [id number] M 77 11/28/22 1 A [id number] ROOM: 309 DATE OF : 1945 DICTATING PHYSICIAN: Phuc Light DATE OF SERVICE: November 29, 2022 SUBJECTIVE: Today, Ron feels better. He is able to be up and around. He has had no bowel movements. OBJECTIVE: He is afebrile. Pulse is 56, respiratory rate 18, blood pressure 124/61, and oxygen saturation 92-95% on room air. Weight is 186 pounds, 6.4 ounces. Intake is 2595 mL and output 1115 mL. Hemovac drain put out 15 mL of slightly reddish-tinged serous fluid. Abdomen is nondistended. The drain dressing has a slight reddish discoloration and staining. Calves are unremarkable. DIAGNOSTIC DATA: White blood cell count is 17,000 and hemoglobin 13.2. Differential shows 95% neutrophils. Sodium is 139, potassium 4.5, creatinine 1.12, and glucose 183. SGOT is 23, SGPT 30, alkaline phosphatase 55, albumin 2.8, total protein 6.5, and glucose 114-161. ASSESSMENT/PLAN: 1. The patient still has ileus. We will gradually advance his diet when he starts passing flatus or having bowel movements. He will need to stay on antibiotics through the IV system while hospitalized. When he goes home, he will be on oral antibiotics. I have consulted Dr. Muñoz of Infectious Disease. In addition, I have explained to the patient that Dr. Silva will cover surgery while I am out. The patient appears to understand, concurs, and has no further questions. 2. Diabetes, under adequate control. Dictated By: Phuc Light MD 11/29/22 16:40 JOB #: [id number] Transcribed By: [email or web address] 11/29/22 17:11 Electronically signed by: E-Sign Dr. Phuc Light MD 12/17/22 10:20 Page 1 of 1 RON QUEEN Progress Note [facility] Discharge summary note 12-06-2022 Note Date & Type Note Facility 12-06-2022 [facility] DISCHARGE SUMMARY NAME ACCOUNT SEX AGE ADMIT DISCHARGE PT MED. RECORD# NUMBER DATE DATE TYPE RON QUEEN [id number] M 77 12/03/22 12/04/22 1 [id number] ROOM: 310 DATE OF : 1945 ATTENDING PHYSICIAN: Kobi Silva ADMITTING DIAGNOSIS: Failure to thrive. SECONDARY DIAGNOSIS: Diabetes. PROCEDURES: Procedures associated with this hospitalization were laparoscopic appendectomy secondary to ruptured acute appendicitis on November 28, 2022. ATTENDING PHYSICIAN: Dr. Kobi Silva CONSULTANTS: None. HOSPITAL COURSE: Mr. Queen is a 77-year-old male who is status post laparoscopic appendectomy secondary to ruptured appendicitis on November 28, 2022. He was discharged from the hospital at that time on December 01, 2022 after meeting all discharge criteria and doing well. He represented to the hospital on December 03, 2022 with intractable emesis and decreased energy levels; thus, he was admitted to the hospital for supportive therapy. He was begun on Zosyn and Flagyl antimicrobial therapy, to continue his treatment for the perforated appendicitis, and aggressive IV fluid resuscitation. He was placed on a carb controlled diet, which he tolerated well, and his blood sugars were strictly controlled. Over the course of the hospitalization, his vital signs remained stable and within normal limits. He was pain free, tolerating his carb controlled diet, ambulating independently and having bowel movements. His laboratory values had all normalized; thus, he was discharged in good condition. DISPOSITION: Home. MEDICATIONS ON DISCHARGE: The patient was instructed to finish his course of Augmentin and Flagyl as previously prescribed. He did not require any additional pain analgesia prescriptions, and was instructed to resume all previous home medications. DISCHARGE INSTRUCTIONS/PLAN: Diet: Regular. Activity: Regular; however, he was instructed not to lift more than 20 pounds with equivalent of exertion for a period of 4 weeks from the date of his surgery. Followup with Dr. Phuc Light's clinic on December 18, 2022. Dictated By: Kobi Silva MD 12/04/22 10:33 Page 1 of 2 RON QUEEN Discharge Summary RON QUEEN : 1945 JOB #: [id number] Transcribed By: am 12/04/22 15:06 Electronically signed by: E-SIGN DR. SILVA 12/06/22 09:39 Page 2 of 2 RON QUEEN Discharge Summary [facility] Clinical Note 12-06-2022 Note Date & Type Note Facility 12-06-2022 Note [facility] PROGRESS NOTE NAME ACCOUNT SEX AGE ADMIT DISCHARGE PT MED. RECORD# NUMBER DATE DATE TYPE RON QUEEN [id number] M 77 11/28/22 12/01/22 1 A [id number] ROOM: [facility] DATE OF : 1945 DICTATING PHYSICIAN: Kobi Silva DATE OF SERVICE: 12/01/22 SUBJECTIVE: No acute events. He is tolerating carb-controlled diet, ambulating independently. Pain is well-controlled with oral agents. OBJECTIVE: He is afebrile, vital signs stable, within normal limits. YAIR with less than 50 mL for the last 24 hours. In general, he is alert, oriented, appropriate, in no acute distress. Abdomen: Soft, nondistended with appropriate postsurgical tenderness to palpation. Incisions with Steri-Strips are clean, dry and intact, with no evidence of cellulitis. DIAGNOSTIC DATA: Laboratory evaluation reveals a white count of 10.4 with 74.2% neutrophilia. ASSESSMENT: A 77-year-old male status post laparoscopic appendectomy secondary to perforated appendicitis. PLAN: The patient's condition has improved. Anticipate discharge home with Augmentin and Flagyl p.o. antimicrobial therapy. We will also give [place] as needed for pain and Colace as needed for constipation. He is instructed to resume all previous home medications. The patient is scheduled to follow up with Dr. Phuc Light on December 27, 2022 at 9 a.m. Discussed this with the patient. All questions are answered. He voiced understanding and agreement with the plan. In addition, YAIR drain was removed prior to discharge. Dictated By: Kobi Silva MD 12/01/22 11:01 JOB #: [id number] Transcribed By: [email or web address] 12/01/22 19:27 Electronically signed by: E-SIGN DR. SILVA 12/06/22 09:39 Page 1 of 2 RON QUEEN Progress Note RON QUEEN : 1945 Page 2 of 2 RON QUEEN Progress Note [facility] Clinical Note 12-06-2022 Note Date & Type Note Facility 12-06-2022 [facility] HISTORY & PHYSICAL NAME ACCOUNT SEX AGE ADMIT DISCHARGE PT MED. RECORD# NUMBER DATE DATE TYPE RON QUEEN [id number] M 77 12/03/22 3 A [id number] ROOM: ER DATE OF : [birth year] DICTATING PHYSICIAN: Kobi Silva CHIEF COMPLAINT: Intractable emesis. HISTORY OF PRESENT ILLNESS: Mr. Queen is a 77-year-old male who is status post laparoscopic appendectomy on November 28, 2022. Intraoperatively, he was found to have perforated appendicitis. Following his operation, he was transferred to the floor and maintained on Zosyn and Flagyl antimicrobial therapy. By hospital day #3, he was afebrile. White count was normal and neutrophilia was normal. He was tolerating a carb-controlled diet, ambulating independently, and his pain was controlled with oral agents. In addition, the YAIR drain placed intraoperatively had minimal serous drainage and was discontinued. The patient was discharged in good condition. For the previous 2 days following discharge and prior to presentation today, the patient states that he has had intractable emesis, non-bilious. He denies any other associated signs and symptoms of systemic illness. PAST MEDICAL HISTORY: Diabetes and obesity. MEDICATIONS: Metformin 1 gram b.i.d., Ozempic 1 mg weekly, and rosuvastatin 10 mg daily. ALLERGIES: No known drug allergies. SOCIAL HISTORY: The patient is a former smoker. Otherwise, he denies current alcohol, tobacco or illicit substance use. REVIEW OF SYSTEMS: Ten-system review of systems is negative. PHYSICAL EXAMINATION GENERAL APPEARANCE: He is alert, oriented and appropriate with no acute distress. VITAL SIGNS: He is afebrile. Vital signs are stable and within normal limits. LUNGS: Lungs are clear to auscultation bilaterally. HEART: Regular rate and rhythm. ABDOMEN: Soft, nontender and nondistended. Incisions with Steri-Strips that are clean, dry and intact with no evidence of cellulitis. Page 1 of 3 RON QUEEN A History & Physical RON QUEEN :1945 EXTREMITIES: No cyanosis, edema or gross deformities. NEUROLOGIC: GCS is 15. Cranial nerves II through XII are grossly intact with 5/5 muscle strength throughout all groups. DIAGNOSTIC DATA: White count is 11.8 with 85.1% neutrophilia. The remainder of the CBC is within normal limits. CMP is unremarkable. Lipase is 91. CRP was 4.9. Urinalysis is negative. CT of the abdomen and pelvis was obtained, which had findings that were consistent with recent appendectomy. No evidence of fluid collections or abscesses. The prostate is enlarged and pressing on the base of the bladder. Liquid stool is present in the proximal colon. IMPRESSION: A 77-year-old male status post laparoscopic appendectomy secondary to perforated appendicitis with failure to thrive. PLAN: 1. We will admit the patient to the hospital for supportive care. 2. We will institute aggressive IV fluid resuscitation with D5 half-normal saline with 20 mEq of KCl at 120 mL/hour. 3. We will continue a carb-controlled diet and encourage as tolerated. 4. We will initiate Zosyn and Flagyl IV antimicrobial therapy. 5. We will institute all prophylaxis including Lovenox, PPI, and SCDs. We will track daily CBCs and neutrophilia. I discussed this at length with the patient, and all questions were answered. He voiced understanding and agreement with the plan. Dictated By: Kobi Silva MD 12/03/22 11:35 JOB #: [id number] Transcribed By: [email or web address] 12/03/22 12:12 Electronically signed by: E-SIGN DR. SILVA 12/06/22 09:39 Update to H&P: [ ] No changes: I have examined the patient and reviewed the H&P and there are no changes. Page 2 of 3 RON QUEEN History & Physical RON QUEEN :1945 [ ] As previously dictated with the following changes: PHYSICIAN SIGNATURE: TIME: DATE: Page 3 of 3 RON QUEEN History & Physical [facility] Clinical Note 12-05-2022 Note Date & Type Note Facility 12-05-2022 Note [facility] CONSULTATION REPORT NAME ACCOUNT SEX AGE ADMIT DISCHARGE PT MED. RECORD# NUMBER DATE DATE TYPE QUEEN, RON [id number] M 77 11/28/2022 1 A [id number] ROOM: [facility] DATE OF : 1945 DICTATING PHYSICIAN: Tlaib Muñoz DATE OF CONSULTATION: 11/29/22 REASON FOR CONSULTATION: Intra-abdominal infection. HISTORY OF PRESENT ILLNESS: This is a 77-year-old gentleman with history of diabetes. The patient presented to the emergency room on 11/28/22. The patient started three days earlier with abdominal pain that initially started around the umbilicus. The pain was persistent associated with some nausea. He was able to manage that. The pain did increase over 48 hours and became more localized to the right lower quadrant. The pain got to intensify, become sharp, associated with significant nausea. He does remember during the night going to the bathroom, and he did have bowel movement, but he had a lot of nausea and did not vomit. The pain got worse, and he went back to bed. The following day, he developed shaking chills to the point the bed was shaking, and he was brought to the emergency room at that point. In the emergency room, the patient was very ill. White count was elevated. CT scan revealed appendicitis. Surgery was called, and the patient underwent surgery, which revealed acute appendicitis with chronic component and perforation, dense adhesions, and peritonitis. The patient was treated accordingly. He was already initiated on Zosyn and Flagyl, and I saw him postoperatively. When I saw the patient, his pain was getting better. He was feeling better overall. He had minimal symptoms, and he was afebrile. He was seen on , yesterday by me. PAST MEDICAL HISTORY: Remarkable for diabetes and hypercholesterolemia. CURRENT MEDICATIONS: Metformin, Ozempic, and Rosuvastatin. ALLERGIES: No known drug allergies. SOCIAL HISTORY: The patient does not smoke or drink alcohol. REVIEW OF SYSTEMS: The patient has fever, chills, shaking with rigors, general illness for three days, progressive, did not feel good, with poor appetite. 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 He denies headache, blurry vision, earache or sore throat, no neck pain, no chest pain, no shortness of breath, no cough, no nausea, no vomiting, no abdominal pain, diarrhea, constipation, difficulty with urination, increased frequency or burning. PHYSICAL EXAMINATION: This is a 77-year-old pleasant gentleman lying in bed fairly comfortable at the time of assessment. Vital signs when I saw him yesterday has revealed a temperature of 97.6. Blood pressure is stable. HEENT: Unremarkable. Neck: Supple. Lungs: Clear. Heart: Regular. Abdomen: Soft to a certain point, and surgical dressing. No bowel sounds, no significant tenderness. Drains in place. Extremities: No edema. DIAGNOSTIC DATA: Today, his hemoglobin A1c is 7.7, white count 13.3. Chemistries reveal sodium 141, BUN 14, creatinine 1.11. CT scan results were reviewed. ASSESSMENT: 1. Peritonitis, on appropriate antibiotic treatment. The source of the peritonitis is perforated appendix. 2. Perforated appendix, chronic with perforation leading to an acute intra-abdominal infection. The likelihood this was subacute appendicitis for three days. 3. Significant adhesions. This is a result of infection, and the patient has hopefully capability to control the infection, which can explain his prolonged illness not becoming lethal or at least critical. 4. Diabetes. The patient's hemoglobin A1c is below 8 at 7.7. The patient told me that his primary care would like it to be below 6, and I explained to him that tight control of diabetes may increase risk for hypoglycemic reaction, as well as potential for increase in risk of dementia for his age group. Hemoglobin A1c of 7 to 8 would be appropriate. Minimal benefit would be gained by lowering it any below 7 in this situation. 5. The patient was encouraged to do incentive spirometry. He is already doing 750 mL, and he did demonstrate that to me. 6. Deep venous thrombosis prophylaxis. 7. The patient is currently on Flagyl and Zosyn. From infectious disease standpoint, that should be appropriate coverage for the current situation unless he worsens again. RECOMMENDATIONS: The patient will continue on current antibiotics until he improves. He can be discharged home on Augmentin plus Flagyl or Cipro plus Flagyl. Either one would be appropriate. The dosage for Augmentin would be 500 mg 3 times a day with meals, in conjunction with Flagyl of 250 mg 3 times a day. The Cipro dose would be 500 mg twice a day. The patient is at risk to develop abscess due to the ruptured appendix. The patient will continue to be on IV antibiotic until he is able to sustain oral intake. Page 2 of 3 YODE (more content not included)... [facility] Clinical Note 12-01-2022 Note Date & Type Note Facility 12-01-2022 [facility] PROGRESS NOTE NAME ACCOUNT SEX AGE ADMIT DISCHARGE PT MED. RECORD# NUMBER DATE DATE TYPE RON QUEEN [id number] M 77 11/28/22 1 A [id number] ROOM: 309 DATE OF : 1945 DICTATING PHYSICIAN: Kobi Silva DATE OF SERVICE: 11/30/22 SUBJECTIVE: No acute events. Pain is well-controlled. OBJECTIVE: He is afebrile. Vital signs are stable, within normal limits. In general, he is alert, oriented, appropriate, in no acute distress. Abdomen: Soft, nondistended with appropriate postsurgical tenderness to palpation. Incisions are with bandages that are clean, dry and intact. DIAGNOSTIC DATA: White count is 13.3, with 81.7% neutrophilia. CMP is within normal limits. YAIR is at minimal output, certainly less than 50 mL per the last 24 hours. ASSESSMENT: A 77-year-old male status post laparoscopic appendectomy secondary to ruptured appendicitis. PLAN: We will continue antimicrobial therapy. We will advance to a regular carb-controlled diet. Discontinue IV fluids. We will initiate Lovenox prophylactic therapy and continue all other prophylaxis. Dictated By: Kobi Silva MD 11/30/22 12:29 JOB #: [id number] Transcribed By: [email or web address] 11/30/22 19:41 Electronically signed by: E-SIGN DR. SILVA 12/01/22 11:07 Page 1 of 2 RON QUEEN Progress Note RON QUEEN : 1945 Page 2 of 2 RON QUEEN Progress Note [facility] Summary Purpose Family History No Family History Records FoundNo Family History Records Found Advance Directives No Advanced Directives Records FoundNo Advanced Directives Records Found Additional Source Comments (unrecognized sect ion and content) No Status Records FoundNo Status Records Found INFORMATION SOURCE (unrecogn ized section and content) DATE CREATED AUTHOR AUTHOR'S ORGANIZ ATION 02/26/2023 [facility] FOR RECORDS PERTAINING TO PATIENTS WHO ARE OR HAVE BEEN ENROLLED IN A CHEMICAL DEPENDENCY/SUBSTANCEABUSE PROGRAM, SOME INFORMATION MAY BE OMITTED. This clinical summary was aggregated from multiple sources. Caution should be exercised in using it in the provision of clinical care. This summary normalizes information from multiple sources, and as a consequence, information in this document may materially change the coding, format and clinical context of patient data. In addition, data may be omitted in some cases. CLINICAL DECISIONS SHOULD BE BASED ON THE PRIMARY CLINICAL RECORDS. [employer] [facility]. provides no warranty or guarantee of the accuracy or completeness of information in this document.
[2023-05-06 10:34] LABS: Absolute Lymphocyte Count 1.58 X10^3/uL (0.83-4.51); Absolute Neutrophil Count 5.8 X10^3/uL (2.0-7.7); Basophil# 0.05 X10^3/uL; Basophil% 0.6 % (0-1); Eosinophil# 0.09 X10^3/uL; Eosinophils% 1.1 % (0-5); Hematocrit 43.1 % (40-54); Hemoglobin 14.5 g/dL (13.0-16.5); Lymphocyte # 1.58 X10^3/ul (0.83-4.51); Lymphocyte % 19.6 % (19-41); Mean Corp Hgb Conc 33.6 g/dL (32-36); Mean Corpuscular Hgb 30.3 pg (27.0-32.0); Mean Platelet Vol. 10.8 fl (6.2-12.0); Monocyte% 6.2 % (0-10); NRBC Flagged by Analyzer 0 % (0-5); Neutrophil # 5.82 X10^3/uL (2.7-7.7); Neutrophil % 72.3 % (47-70); Platelet Count 318 K/mm3 (150-450); RBC Distribution Width CV 12.4 % (11.6-14.6); Red Blood Count 4.79 M/mm3 (4.6-6.2); White Blood Count 8.1 K/mm3 (4.4-11.0)
[2023-05-06 10:50] LABS: Hemoglobin A1c 9.8 % (3.8-5.6)
[2023-05-06 11:04] LABS: ALB/GLOB Ratio 0.8 RATIO (0.9-2.4); AST(SGOT) 20 U/L (15-37); Alanine Aminotransfer ALT/SGPT 39 U/L (16-61); Albumin, Serum 3.4 g/dL (3.2-5.0); Alkaline Phosphatase 66 U/L (45-117); Anion Gap 5 (5-15); BUN 12 mg/dL (7-18); BUN/Creat Ratio 11.4 RATIO (10-20); Calcium,Total 9.1 mg/dL (8.5-10.1); Chloride 109 mmol/L (98-107); Cholesterol 252 mg/dL (200); Creatinine, Serum 1.05 mg/dL (0.70-1.30); EST Glomerular Filtration Rate 73 mL/min (>60); Est Glom Filt Rate - Afr Amer 88 mL/min (>60); Globulin 4.4 g/dL (2.2-4.2); Glucose 207 mg/dL (74-106); High Density Lipoprotein 54 mg/dL; Potassium 4.1 mmol/L (3.5-5.1); Protein, Total 7.8 g/dL (6.4-8.2); Sodium Level 138 mmol/L (136-145); Triglycerides 85 mg/dL; Very Low Density Lipoprotein 17 mg/dL (5-40)
[2023-05-06 14:20] LABS: Microalbumin,Random Urine 31.1 mg/L (NO RANGE EST.); Microalbumin:Creatinine Ratio 14.2 mg/g CRE (<30 mg/g CRE)
== END | disposition home or self-care (01) ==
PROVIDERS: PCP Family Medicine; Referring Provider Family Medicine; Visit Provider Family Medicine
DX: E11.9 Type 2 diabetes mellitus without complications (principal)
CPT/HCPCS: 36415; 80053; 80061; 82043; 82570; 83036; 85025

== ENCOUNTER → 2023-10-21 | Outpatient (CLI) | payer MEDICARE, SELFPAY ==
[2023-10-21 12:07] LABS: Absolute Neutrophil Count 7.2 X10^3/uL (2.0-7.7); Basophil# 0.04 X10^3/uL; Basophil% 0.4 % (0-1); Eosinophil# 0.08 X10^3/uL; Eosinophils% 0.8 % (0-5); Hematocrit 43.3 % (40-54); Hemoglobin 14.2 g/dL (13.0-16.5); Lymphocyte % 20.1 % (19-41); Mean Corp Hgb Conc 32.8 g/dL (32-36); Mean Corpuscular Hgb 29.8 pg (27.0-32.0); Mean Platelet Vol. 11.3 fl (6.2-12.0); Monocyte# 0.62 X10^3/uL; Monocyte% 6.2 % (0-10); NRBC Flagged by Analyzer 0 % (0-5); Neutrophil # 7.18 X10^3/uL (2.7-7.7); Neutrophil % 72.3 % (47-70); Platelet Count 255 K/mm3 (150-450); RBC Distribution Width CV 12.5 % (11.6-14.6); RBC Distribution Width SD 41.3 fl (35.1-43.9); Red Blood Count 4.76 M/mm3 (4.6-6.2); White Blood Count 9.9 K/mm3 (4.4-11.0)
[2023-10-21 12:55] LABS: ALB/GLOB Ratio 0.9 RATIO (0.9-2.4); AST(SGOT) 15 U/L (15-37); Alanine Aminotransfer ALT/SGPT 21 U/L (16-61); Albumin, Serum 3.5 g/dL (3.2-5.0); Alkaline Phosphatase 71 U/L (45-117); Anion Gap 10 (5-15); BUN 16 mg/dL (7-18); BUN/Creat Ratio 15.4 RATIO (10-20); Calcium,Total 9.3 mg/dL (8.5-10.1); Chloride 106 mmol/L (98-107); Cholesterol 122 mg/dL (200); Creatinine, Serum 1.04 mg/dL (0.70-1.30); EST Glomerular Filtration Rate 74 mL/min (>60); Est Glom Filt Rate - Afr Amer 89 mL/min (>60); Globulin 3.9 g/dL (2.2-4.2); Glucose 162 mg/dL (74-106); High Density Lipoprotein 52 mg/dL; Potassium 3.8 mmol/L (3.5-5.1); Protein, Total 7.4 g/dL (6.4-8.2); Sodium Level 138 mmol/L (136-145); Thyroid Stim Hormone (TSH) 3.71 uIU/mL (0.358-3.74); Triglycerides 86 mg/dL; Very Low Density Lipoprotein 17 mg/dL (5-40)
[2023-10-21 14:28] LABS: Microalbumin,Random Urine 6.2 mg/L (NO RANGE EST.); Microalbumin:Creatinine Ratio 7.9 mg/g CRE (<30 mg/g CRE)
[2023-10-21 20:02] LABS: Hemoglobin A1c 9.7 % (3.8-5.6)
[2023-10-22 12:09] LABS: PSA, Free 1.43 ng/mL; PSA, Free % 35.2 % (.)
== END | disposition home or self-care (01) ==
PROVIDERS: PCP Family Medicine; Referring Provider Family Medicine; Visit Provider Family Medicine
DX: E11.9 Type 2 diabetes mellitus without complications (principal); R97.20 Elevated prostate specific antigen [PSA]
CPT/HCPCS: 36415; 80053; 80061; 82043; 82570; 83036; 84153; 84154; 84443; 85025

== ENCOUNTER → 2024-01-21 | Outpatient (CLI) | payer MEDICARE, SELFPAY ==
[2024-01-21 12:45] LABS: Absolute Lymphocyte Count 1.82 X10^3/uL (0.83-4.51); Absolute Neutrophil Count 7.2 X10^3/uL (2.0-7.7); Basophil# 0.03 X10^3/uL; Basophil% 0.3 % (0-1); Eosinophil# 0.07 X10^3/uL; Eosinophils% 0.7 % (0-5); Hematocrit 44.7 % (40-54); Hemoglobin 14.3 g/dL (13.0-16.5); Lymphocyte # 1.82 X10^3/ul (0.83-4.51); Lymphocyte % 18.8 % (19-41); Mean Corpuscular Hgb 28.9 pg (27.0-32.0); Mean Corpuscular Volume 90.5 fL (80-94); Mean Platelet Vol. 10.7 fl (6.2-12.0); Monocyte# 0.52 X10^3/uL; Monocyte% 5.4 % (0-10); NRBC Flagged by Analyzer 0 % (0-5); Neutrophil # 7.22 X10^3/uL (2.7-7.7); Neutrophil % 74.6 % (47-70); Platelet Count 297 K/mm3 (150-450); RBC Distribution Width CV 13.1 % (11.6-14.6); RBC Distribution Width SD 43.1 fl (35.1-43.9); Red Blood Count 4.94 M/mm3 (4.6-6.2); White Blood Count 9.7 K/mm3 (4.4-11.0)
[2024-01-21 13:04] LABS: ALB/GLOB Ratio 0.9 RATIO (0.9-2.4); AST(SGOT) 13 U/L (15-37); Alanine Aminotransfer ALT/SGPT 23 U/L (16-61); Albumin, Serum 3.5 g/dL (3.2-5.0); Alkaline Phosphatase 64 U/L (45-117); Anion Gap 8 (5-15); BUN 11 mg/dL (7-18); BUN/Creat Ratio 12.1 RATIO (10-20); Calcium,Total 9.2 mg/dL (8.5-10.1); Chloride 107 mmol/L (98-107); Cholesterol 141 mg/dL (200); Creatinine, Serum 0.91 mg/dL (0.70-1.30); EST Glomerular Filtration Rate 86 mL/min (>60); Est Glom Filt Rate - Afr Amer 104 mL/min (>60); Globulin 3.8 g/dL (2.2-4.2); Glucose 161 mg/dL (74-106); High Density Lipoprotein 54 mg/dL; Potassium 3.9 mmol/L (3.5-5.1); Protein, Total 7.3 g/dL (6.4-8.2); Sodium Level 137 mmol/L (136-145); Triglycerides 68 mg/dL; Very Low Density Lipoprotein 14 mg/dL (5-40)
[2024-01-21 13:39] LABS: Microalbumin,Random Urine 9.2 mg/L (NO RANGE EST.); Microalbumin:Creatinine Ratio 18.3 mg/g CRE (<30 mg/g CRE)
[2024-01-21 15:28] LABS: Hemoglobin A1c 7.7 % (3.8-5.6)
[2024-01-22 14:54] LABS: PSA, Free 1.51 ng/mL; PSA, Free % 31.1 % (.)
== END | disposition home or self-care (01) ==
LOC: MTLAB 09:35
PROVIDERS: PCP Family Medicine; Referring Provider Family Medicine; Visit Provider Family Medicine
DX: E11.9 Type 2 diabetes mellitus without complications (principal); R97.20 Elevated prostate specific antigen [PSA]
CPT/HCPCS: 36415; 80053; 80061; 82043; 82570; 83036; 84153; 84154; 85025

== ENCOUNTER → 2024-06-02 | Outpatient (CLI) | payer MEDICARE, SELFPAY ==
[2024-06-02 15:23] LABS: Absolute Lymphocyte Count 2.36 X10^3/uL (0.83-4.51); Absolute Neutrophil Count 7.3 X10^3/uL (2.0-7.7); Basophil# 0.03 X10^3/uL; Basophil% 0.3 % (0-1); Eosinophil# 0.08 X10^3/uL; Eosinophils% 0.8 % (0-5); Hematocrit 41.6 % (40-54); Lymphocyte # 2.36 X10^3/ul (0.83-4.51); Lymphocyte % 22.8 % (19-41); Mean Corp Hgb Conc 33.7 g/dL (32-36); Mean Corpuscular Volume 89.1 fL (80-94); Monocyte# 0.61 X10^3/uL; Monocyte% 5.9 % (0-10); NRBC Flagged by Analyzer 0 % (0-5); Neutrophil # 7.25 X10^3/uL (2.7-7.7); Neutrophil % 69.8 % (47-70); Platelet Count 355 K/mm3 (150-450); RBC Distribution Width CV 12.2 % (11.6-14.6); RBC Distribution Width SD 39.5 fl (35.1-43.9); Red Blood Count 4.67 M/mm3 (4.6-6.2); White Blood Count 10.4 K/mm3 (4.4-11.0)
[2024-06-02 20:35] LABS: ALB/GLOB Ratio 1.3 RATIO (0.9-2.4); AST(SGOT) 22 U/L (<=37); Alanine Aminotransfer ALT/SGPT 21 U/L (<=46); Albumin, Serum 4.1 g/dL (3.4-4.8); Alkaline Phosphatase 67 U/L (40-129); BUN 14 mg/dL (4-19); BUN/Creat Ratio 15.3 RATIO (10-20); Cholesterol 117 mg/dL (<=200); Creatinine, Serum 0.9 mg/dL (0.8-1.3); EST Glomerular Filtration Rate 83 (>60); Globulin 3.2 g/dL (2.2-4.2); Glucose 143 mg/dL (70-99); High Density Lipoprotein 43 mg/dL; Protein, Total 7.3 g/dL (5.9-8.4); Total Bilirubin 0.85 mg/dL (0.00-1.30); Triglycerides 99 mg/dL; Very Low Density Lipoprotein 20 mg/dL (5-40)
[2024-06-03 04:03] LABS: Anion Gap 21 (5-15); Calcium,Total 10.2 mg/dL (7.6-11.0); Carbon Dioxide 15.3 mmol/L (21.0-32.0); Chloride 103 mmol/L (98-107); Potassium 4.4 mmol/L (3.5-5.1); Sodium Level 139 mmol/L (136-145)
[2024-06-03 19:52] LABS: Hemoglobin A1c 8.6 % (<=5.6)
== END | disposition home or self-care (01) ==
LOC: MTLAB 11:34
PROVIDERS: PCP Family Medicine; Referring Provider Family Medicine; Visit Provider Family Medicine
DX: E11.9 Type 2 diabetes mellitus without complications (principal)
CPT/HCPCS: 36415; 80053; 80061; 83036; 85025

== ENCOUNTER → 2024-06-04 | Outpatient (CLI) | payer MEDICARE, SELFPAY ==
[2024-06-07 01:06] LABS: PSA, Free 2.03 ng/mL; PSA, Free % 33.2 % (.)
== END | disposition home or self-care (01) ==
LOC: MFPLAB 11:53
PROVIDERS: PCP Family Medicine; Referring Provider Family Medicine; Visit Provider Family Medicine
DX: R97.20 Elevated prostate specific antigen [PSA] (principal)
CPT/HCPCS: 36415; 84153; 84154

== ENCOUNTER → 2024-08-14 | Outpatient (CLI) | payer MEDICARE, SELFPAY ==
[2024-08-14 13:47] LABS: Absolute Lymphocyte Count 1.76 X10^3/uL (0.83-4.51); Absolute Neutrophil Count 6.5 X10^3/uL (2.0-7.7); Basophil# 0.04 X10^3/uL; Basophil% 0.4 % (0-1); Eosinophil# 0.09 X10^3/uL; Hematocrit 40.8 % (40-54); Hemoglobin 13.9 g/dL (13.0-16.5); Lymphocyte # 1.76 X10^3/ul (0.83-4.51); Lymphocyte % 19.8 % (19-41); Mean Corp Hgb Conc 34.1 g/dL (32-36); Mean Corpuscular Hgb 30.7 pg (27.0-32.0); Mean Corpuscular Volume 90.1 fL (80-94); Mean Platelet Vol. 10.9 fl (6.2-12.0); Monocyte# 0.57 X10^3/uL; Monocyte% 6.4 % (0-10); NRBC Flagged by Analyzer 0 % (0-5); Neutrophil # 6.45 X10^3/uL (2.7-7.7); Neutrophil % 72.4 % (47-70); Platelet Count 298 K/mm3 (150-450); RBC Distribution Width CV 12.7 % (11.6-14.6); RBC Distribution Width SD 41.8 fl (35.1-43.9); Red Blood Count 4.53 M/mm3 (4.6-6.2); White Blood Count 8.9 K/mm3 (4.4-11.0)
[2024-08-14 14:05] LABS: ALB/GLOB Ratio 1.3 RATIO (0.9-2.4); AST(SGOT) 20 U/L (<=37); Alanine Aminotransfer ALT/SGPT 18 U/L (<=46); Albumin, Serum 4.1 g/dL (3.4-4.8); Alkaline Phosphatase 66 U/L (40-129); Anion Gap 11 (5-15); BUN 12 mg/dL (4-19); BUN/Creat Ratio 12.5 RATIO (10-20); Calcium,Total 9.3 mg/dL (7.6-11.0); Carbon Dioxide 24.2 mmol/L (21.0-32.0); Chloride 104 mmol/L (98-108); Cholesterol 120 mg/dL (<=200); Creatinine, Serum 0.92 mg/dL (0.70-1.20); EST Glomerular Filtration Rate 86 (>60); Globulin 3.1 g/dL (2.2-4.2); Glucose 172 mg/dL (70-99); High Density Lipoprotein 48 mg/dL; Low Density Lipoprotein Calc. 52 mg/dL; Potassium 4.3 mmol/L (3.3-5.1); Protein, Total 7.2 g/dL (5.9-8.4); Sodium Level 139 mmol/L (133-145); Total Bilirubin 1.01 mg/dL (0.00-1.30); Triglycerides 104 mg/dL; Very Low Density Lipoprotein 21 mg/dL (5-40); cholesterol:hdl ratio screen 2.52
[2024-08-14 14:08] LABS: Hemoglobin A1c 7.8 % (<=5.6)
[2024-08-14 15:14] LABS: Microalbumin,Random Urine 13.6 mg/L (NO RANGE EST.); Microalbumin:Creatinine Ratio 97.8 mg/g CRE
== END | disposition home or self-care (01) ==
LOC: MTLAB 10:27
PROVIDERS: PCP Family Medicine; Referring Provider Family Medicine; Visit Provider Family Medicine
DX: E11.8 Type 2 diabetes mellitus with unspecified complications (principal)
CPT/HCPCS: 36415; 80053; 80061; 82043; 82570; 83036; 85025

== ENCOUNTER → 2025-01-14 | Outpatient (CLI) | payer MEDICARE, SELFPAY ==
[2025-01-14 14:56] LABS: Hematocrit 42.3 % (40-54); Hemoglobin 14.0 g/dL (13.0-16.5); Immature Granulocytes Count 0.020 X10^3/uL (0.0-0.0); Mean Corp Hgb Conc 33.1 g/dL (32-36); Mean Corpuscular Volume 90.6 fL (80-94); Mean Platelet Vol. 11.2 fl (6.2-12.0); NRBC Flagged by Analyzer 0 % (0-5); Platelet Count 289 K/mm3 (150-450); RBC Distribution Width CV 13.2 % (11.6-14.6); RBC Distribution Width SD 43.5 fl (35.1-43.9); Red Blood Count 4.67 M/mm3 (4.6-6.2); White Blood Count 8.0 K/mm3 (4.4-11.0)
[2025-01-14 16:00] LABS: Creatinine, Urine (random) 167.00 mg/dL (39.00-259.00); Microalbumin,Random Urine 12.6 mg/L (<20 mg/L)
[2025-01-14 19:24] LABS: AST(SGOT) 22 U/L (<=37); Alanine Aminotransfer ALT/SGPT 29 U/L (<=46); Albumin, Serum 4.2 g/dL (3.4-4.8); Alkaline Phosphatase 60 U/L (40-129); Anion Gap 12 (5-15); BUN 11 mg/dL (4-19); BUN/Creat Ratio 12.1 RATIO (10-20); Calcium,Total 9.4 mg/dL (7.6-11.0); Carbon Dioxide 21.5 mmol/L (21.0-32.0); Chloride 105 mmol/L (98-108); Cholesterol 124 mg/dL (<=200); Globulin 3.1 g/dL (2.2-4.2); Glucose 125 mg/dL (70-99); Low Density Lipoprotein Calc. 64 mg/dL; Potassium 4.0 mmol/L (3.3-5.1); Triglycerides 75 mg/dL; Very Low Density Lipoprotein 15 mg/dL (5-40); cholesterol:hdl ratio screen 2.73
[2025-01-16 10:08] LABS: PSA, Free 1.72 ng/mL; PSA, Free % 34.5 % (.); PSA, Total Ultrasensitive 4.990 ng/mL (0.000-4.000)
== END | disposition home or self-care (01) ==
LOC: MFPLAB 12:08
PROVIDERS: PCP Family Medicine; Visit Provider Family Medicine
DX: E11.69 Type 2 diabetes mellitus with other specified complication (principal); R97.20 Elevated prostate specific antigen [PSA]
CPT/HCPCS: 36415; 80053; 80061; 82043; 82570; 83036; 84153; 84154; 85025